=== PATIENT | female | born 1945 | race Caucasian/White ===

== ENCOUNTER 2020-08-31 15:00 | IRF | payer MEDICARE, MEDICAID, SELFPAY ==
--- NOTE | ~2020-08-31 | US_ITS ---
EXAMINATION: US venous doppler LE EXAM DATE: 09/07/2020 13:23 INDICATION: Bilateral leg swelling more on the left than on the right. TECHNIQUE: Multiple grayscale, color flow and Doppler images of the lower extremity deep venous syste ms bilaterally were obtained and reviewed. There is no prior study for comparison. FINDINGS: Right side: The right common femoral, femoral and profunda veins demonstrate normal color flow, respi ratory variation, augmentation and compressibility. Compressibility, color flow confirmed within the right popliteal, posterior tibial, peroneal, and greater saphenous veins. Left side: The left common femoral, femoral and profunda veins demonstrate normal color flow, respira tory variation, augmentation and compressibility. Compressibility, color flow confirmed within the l eft popliteal, posterior tibial, peroneal, and greater saphenous veins. IMPRESSION: 1. No lower extremity deep venous thrombosis bilaterally. Reviewed, dictated and finalized at location A.
[2020-08-31 15:00] VITALS: BMI 33.6
--- NOTE | 2020-08-31 15:34 | ADMGEN ---
This patient, Geni Ferreira, was admitted to [facility] Room 223-02. Patient/family oriented to hospital policies and general routines including ID bracelet, bed and alarms, visiting hours, pain management, procedures, bathroom and other care routines, personal items, smoking policy, room service/diet, and visiting hours. Information on how to activate the Rapid Response Team has been discussed. Patient/Family are encouraged to report perceived risks to care and to ask questions if they do not understand what they are told or what they should do.
[2020-08-31 15:37] VITALS: BP 112/52; PULSE 58; RESP 18; TEMP 36.2; O2SAT 100
--- NOTE | 2020-08-31 16:42 | ADMGEN ---
This patient, Geni Ferreira, was admitted to [facility] Room 223-02. Patient/family oriented to hospital policies and general routines including ID bracelet, bed and alarms, visiting hours, pain management, procedures, bathroom and other care routines, personal items, smoking policy, room service/diet, and visiting hours. Information on how to activate the Rapid Response Team has been discussed. Patient/Family are encouraged to report perceived risks to care and to ask questions if they do not understand what they are told or what they should do. Patient arrived to unit at 1500, was transported via w/c Front Desk HQ, pleasant and cooperative
[2020-08-31 17:13] LABS: Glucose Point of Care 172 (65-105)
[2020-08-31] MEDS: SEVELAMER CARBONATE 800 MG TABLET PO (18:09)
[2020-08-31] MEDS: rOPINIRole HCL 0.25 MG TABLET PO (18:10)
[2020-08-31] MEDS: HYDROcodone/acetaminophen (*CRX) 10-325 MG TABLET 1 TAB PO ×2 (18:11→22:57)
--- NOTE | 2020-08-31 18:24 | WPDREHABHP ---
H&P: HPI History of Present Illness Date/Time: 08/31/20 18:24 Chief Complaint: left inferior pubic rami fracture Narrative: HISTORY OF PRESENT ILLNESS: The patient's primary rehab impairment category is orthopedic lower extremity fracture The etiologic diagnosis is nondisplaced left inferior pubic ramus fracture I saw this patient [id number] on 08/31/2020 The patient is a 74-year-old obese female with past medical history of type 2 diabetes, hypertension, atrial fib on aspirin, and end-stage renal disease with hemodialysis Sunday presented to [facility] on 08/28/2020 for evaluation of left hip and pelvic pain after experiencing a fall 2 days prior. Patient was initially seen on 08/26/2020 at [place] emergency department and found to have a pelvic fracture. The patient deferred admittance and was discharged home. She continued to have pain and was re-evaluated at [facility] on 08/29/2019. Imaging showed healing complete nondisplaced fracture through the midportion left inferior pubic rami. Orthopedic consult was requested and recommended nonsurgical intervention. The patient is weight-bearing as tolerated through the left lower extremity. The injury is stable and physician recommends air you for continued functional progress. No further follow-up for repeat radiographs are indicated for this type of fracture. The patient experienced medical complications of hypertension, hypo in a tree me a, hyperglycemia, hypercalcemia, anemia, and acute persistent pain. The patient will not discharge to [place] acute rehab on DVT prophylaxis. The patient is responding well to p.o. narcotics for pain control Therapy was initiated at the acute care facility and the patient transferred to us from [facility] on 08/31/2020 FALLS OR SURGERIES: The patient has had no major surgeries in the 100 days prior to admission. They has had falls in the past year. They has had a ] falls with injury in the past year. nondisplaced left inferior pubic rami fracture PRIOR LEVEL OF FUNCTION: Eating was [INDEPENDENT] Oral Care was [INDEPENDENT] Toileting Hygiene was [INDEPENDENT] Shower/Bathing was [INDEPENDENT] Upper Body Dressing was [INDEPENDENT] Lower Body Dressing was [INDEPENDENT] Donning/[place] Footwear was [INDEPENDENT] Rolling Left and Right was [INDEPENDENT] Sit to Lying was [INDEPENDENT] Lying to Sitting was [INDEPENDENT] Sit to Stand was [INDEPENDENT] Bed to Chair Transfers was [INDEPENDENT] Toilet Transfers was [INDEPENDENT] Walking was [INDEPENDENT] [>500 feet] with [NO DEVICE] Wheelchair Mobility was [NOT APPLICABLE PRIOR TO ADMISSION] Stairs were 6 steps requiring supervision or touching assistance CURRENT LEVEL OF FUNCTION: Eating was independent Oral Care was setup are clean up assistance Toileting Hygiene was partial to moderate assistance Shower/Bathing was partial to moderate assistance Upper Body Dressing was partial to moderate assistance Lower Body Dressing was partial to moderate assistance Donning/[place] Footwear was partial to moderate assistance Rolling Left and Right was partial to moderate assistance Sit to Lying was partial to moderate assistance Lying to Sitting was partial to moderate assistance Sit to Stand was partial to moderate assist Bed to Chair Transfers were partial to moderate assistance Toilet Transfers were partial to moderate assistance Walking was 40 ft with a roller walker and partial to moderate assistance Wheelchair Mobility was [] not tested Stairs were [] not tested GOALS: Our therapists will evaluate the patient and establish the goals. However, upon pre-admission screening, the expected goals were to be [INDEPENDENT] with self-care, [INDEPENDENT] with transfers, and [INDEPENDENT] with functional mobility so that the patient can return home. ESTIMATED LENGTH OF STAY: 7-10 days POTENTIAL BARRIERS TO DISCHAR
[2020-08-31 20:25] VITALS: BP 129/50; PULSE 59; RESP 20; TEMP 36.5; O2SAT 100
[2020-08-31 20:40] LABS: Glucose Point of Care 191 (65-105)
[2020-08-31 20:43] VITALS: PULSE 62
[2020-08-31] MEDS: AMITRIPTYLINE HCL 25 MG TABLET 50 MG PO (20:43)
[2020-08-31] MEDS: ASPIRIN 81 MG ENTERIC TABLET PO (20:43)
[2020-08-31] MEDS: busPIRone HCL 10 MG TABLET PO (20:43)
[2020-08-31] MEDS: carvediloL 25 MG TABLET PO (20:43)
[2020-08-31] MEDS: PRAVASTATIN SODIUM 20 MG TABLET PO (20:44)
[2020-08-31] MEDS: MIRTAZAPINE 15 MG TABLET PO (20:45)
[2020-08-31 22:00] VITALS: BP 129/50; PULSE 59; RESP 20; TEMP 36.5; O2SAT 100
[2020-09-01] VITALS (18 sets, daily range): BP systolic 110–150; BP diastolic 53–73; PULSE 57–80; RESP 16–22; TEMP 36–37; O2SAT 97–98; BMI 33.6
[2020-09-01 06:14] LABS: Glucose Point of Care 131 (65-105)
[2020-09-01] MEDS: HYDROcodone/acetaminophen (*CRX) 10-325 MG TABLET 1 TAB PO ×4 (06:15→20:23)
[2020-09-01] MEDS: INSULIN GLARGINE (*BKC) 100 UNITS/ML 10 UNITS SUB-Q (06:15)
[2020-09-01] MEDS: LEVOTHYROXINE SODIUM 50 MCG TABLET PO (06:17)
[2020-09-01 07:35] LABS: Alanine Aminotransferase 26 U/L (4-35); Albumin Level 3.6 g/dL (3.5-5.1); Alkaline Phosphatase 169 U/L (38-126); Anion Gap 11 mmol/L (8-16); Aspartate Amino Transferase 38 U/L (14-36); Bilirubin,Total 0.3 mg/dL (0.2-1.3); Blood Urea Nitrogen 66 mg/dL (7-17); Calcium 8.2 mg/dL (8.4-10.2); Carbon Dioxide 27 mmol/L (22-30); Chloride 89 mmol/L (98-107); Estimated CRCL calculation 7 ml/min; Estimated Glomerular Filt Rate 6; Glucose 145 mg/dL (65-105); Phosphorus 7.3 mg/dL (2.5-4.5); Potassium 5.4 mmol/L (3.4-5.0); Sodium 127 mmol/L (137-145)
[2020-09-01 07:46] LABS: Parathyroid Intact 734.1 pg/mL (7.5-53.5)
[2020-09-01 07:50] LABS: Basophils Percent Auto 0.6 % (0.2-1.2); Eosinophils Absolute Auto 0.2 K/mm3 (0-0.3); Eosinophils Percent Auto 3.9 % (0-4.4); Hematocrit 29.7 % (37.0-47.0); Hemoglobin 10.1 g/dL (12.0-15.0); Immature Granulocyte Absolute 0.03 K/mm3 (0.00-0.031); Immature Granulocyte Percent A 0.6 % (0-0.5); Immature Platelet Fraction Pct 13.2 % (0.9-11.2); Lymphocytes Absolute Auto 1.42 K/mm3 (0.9-3.2); Lymphocytes Percent Auto 26.4 % (18.3-44.2); Mean Corpuscular Hemoglobin 32.4 pg (26-34); Mean Corpuscular Volume 95.2 fl (80-100); Mean Platelet Volume 12.6 fl (7.4-10.4); Monocytes Absolute Auto 0.7 K/mm3 (0.1-0.6); Monocytes Percent Auto 13.4 % (2.6-8.5); Neutrophils Percent Auto 55.1 % (45.5-73.1); Platelet Count Result 121 k/mm3 (150-375); Red Blood Count 3.12 M/mm3 (4.2-5.4); Red Cell Distribution Width 13.2 % (11.5-14.5); White Blood Count 5.4 K/mm3 (4.5-10.0)
[2020-09-01 07:51] LABS: Iron 60 ug/dL (37-170)
[2020-09-01 08:00] LABS: Percent Iron Saturation 31 % (20-50)
[2020-09-01 08:09] LABS: Vitamin D 25 Hydroxy 29.6 ng/mL
[2020-09-01 08:24] LABS: Hepatitis B Surface Antigen Negative (Negative)
[2020-09-01 08:30] LABS: HAV RESULT Negative (Negative); Hepatitis B Core IgM Result Negative (Negative)
[2020-09-01] MEDS: VITAMIN B CMPLX/VIT C/FOLIC AC 1 CAPSULE 1 CAP PO (08:37)
[2020-09-01] MEDS: FLUTICASONE PROPIONATE 0.05% NA SPR 16 GM BTL (*BKC) 2 SPRAY NASAL (08:37)
[2020-09-01] MEDS: ISOSORBIDE MONONITRATE 30 MG TAB.ER.24H PO (08:37)
[2020-09-01] MEDS: SEVELAMER CARBONATE 800 MG TABLET PO ×3 (08:37→16:48)
[2020-09-01] MEDS: CITALOPRAM HYDROBROMIDE 10 MG TABLET 40 MG PO (08:37)
[2020-09-01] MEDS: amLODIPine BESYLATE 5 MG TABLET 10 MG PO (08:37)
[2020-09-01] MEDS: LORATADINE 10 MG TABLET PO (08:38)
[2020-09-01] MEDS: busPIRone HCL 10 MG TABLET PO ×2 (08:38→20:25)
[2020-09-01] MEDS: MONTELUKAST SODIUM 10 MG TABLET PO (08:38)
[2020-09-01] MEDS: AMIODARONE HCL 200 MG TABLET PO (08:38)
[2020-09-01] MEDS: lisinopriL 20 MG TABLET PO (08:38)
[2020-09-01] MEDS: PANTOPRAZOLE 40 MG TABLET PO (08:38)
[2020-09-01] MEDS: DONEPEZIL HCL 10 MG TABLET PO (08:38)
[2020-09-01] MEDS: carvediloL 25 MG TABLET PO ×2 (08:38→20:27)
[2020-09-01 08:42] LABS: Hepatitis B Surface Anti Res Negative; Hepatitis C Virus Antibody Negative (Negative)
[2020-09-01 11:30] LABS: Glucose Point of Care 214 (65-105)
[2020-09-01] MEDS: INSULIN ASPART (*BKC) 100 UNITS/ML SUB-Q (12:04)
--- NOTE | 2020-09-01 13:32 | PCNSR ---
On 09/01/20, the student, Juanita Voss, provided care and completed [employer] documentation on this patient. I have reviewed the student's documentation and agree with the findings. In addition, recommend adding diabetic, carbohydrate diet for optimal glucose control.
--- NOTE | 2020-09-01 14:16 | WPDNEURORHBP ---
Subjective Date/time seen: 09/01/20 14:16 Interval history: Rehab diagnosis: non displaced left inferior pubic rami fracture 74-year-old female with past medical history of diabetes type 2 mellitus. Hypertension. Atrial fib on aspirin, and end-stage renal disease with hemodialysis Sunday who presented to [facility] on 08/28 for evaluation of left hip and pelvic pain after experience a fall 2 days prior. Imaging showed healing complete nondisplaced fracture through the midportion left inferior pubic rami. Patient is weight-bearing as tolerated left lower extremity and patient is now being transferred to acute rehab. Review of Systems Review of Systems: All systems reviewed & are unremarkable except as noted in HPI and below Exam Narrative: Exam Narrative: Patient is alert and oriented x3 pleasant. Head is normocephalic. Extraocular muscles are intact. Speech is fluent dentition is poor. Heart rate and rhythm is regular. Lungs are clear. Abdomen is obese soft nontender upper extremity strength are 4/5 right lower extremity strength is 4-5 left is painful with proximal strength being 2 to 3/5 and distal strength 3- to 4+ Objective Data Vital Signs Vital Signs: Vital Signs - 24 hr 08/31/20 15:37 08/31/20 20:25 08/31/20 20:43 Temperature 36.2 C L 36.5 C Pulse Rate 58 L 59 L 62 Respiratory Rate 18 20 Blood Pressure 112/52 L 129/50 L Pulse Oximetry 100 100 08/31/20 22:00 09/01/20 06:00 09/01/20 08:38 Temperature 36.5 C 36.1 C L Pulse Rate 59 L 61 66 Respiratory Rate 20 16 Blood Pressure 129/50 L 122/70 Pulse Oximetry 100 98 Intake/Output Intake/Output: Intake & Output 08/29/20 08/30/20 08/31/20 09/01/20 23:59 23:59 23:59 23:59 Intake Total 480 Balance 480 Meds/Results Medications: Active Medications Generic Name Dose Route Start Last Admin Trade Name Freq PRN Reason Stop Dose Admin Acetaminophen 1,000 mg 09/02/20 08:00 Acetaminophen 500 Mg Tablet PO 0800,1200 DERRICK Acetaminophen 650 mg 09/01/20 13:46 Acetaminophen 325 Mg Tablet PO Q6H PRN Mild Pain (1-3) or Fever Hydrocodone Bitart/Acetaminophen 1 tab 08/31/20 17:08 09/01/20 10:17 Hydrocodone/Acetaminophen (*Crx) 10-325 Mg Tablet PO 1 tab Q4H PRN Administration Pain Amiodarone HCl 200 mg 09/01/20 09:00 09/01/20 08:38 Amiodarone Hcl 200 Mg Tablet PO 200 mg DAILY DERRICK Administration Amitriptyline HCl 50 mg 08/31/20 21:00 08/31/20 20:43 Amitriptyline Hcl 25 Mg Tablet PO 50 mg HS DERRICK Administration Amlodipine Besylate 10 mg 09/01/20 09:00 09/01/20 08:37 Amlodipine Besylate 5 Mg Tablet PO 10 mg DAILY DERRICK Administration Aspirin 81 mg 08/31/20 21:00 08/31/20 20:43 Aspirin 81 Mg Enteric Tablet PO 81 mg HS DERRICK Administration Buspirone HCl 10 mg 08/31/20 21:00 09/01/20 08:38 Buspirone Hcl 10 Mg Tablet PO 10 mg Q12HR DERRICK Administration Carisoprodol 350 mg 08/31/20 17:16 Carisoprodol (*Crx) 350 Mg Tablet PO TID PRN Muscle Spasm Carvedilol 25 mg 08/31/20 21:00 09/01/20 08:38 Carvedilol 25 Mg Tablet PO 25 mg Q12HR DERRICK Administration Citalopram Hydrobromide 40 mg 09/01/20 09:00 09/01/20 08:37 Citalopram Hydrobromide 10 Mg Tablet PO 40 mg DAILY DERRICK Administration Dextrose 12.5 gm 08/31/20 16:31 Dextrose 50% 25 Gm/50 Ml Syringe IV PUSH PRN PRN Hypoglycemia Protocol Donepezil HCl 10 mg 09/01/20 09:00 09/01/20 08:38 Donepezil Hcl 10 Mg Tablet PO 10 mg DAILY DERRICK Administration Epoetin Conor-epbx 10,000 units 09/01/20 23:09 Epoetin Conor-Epbx 10,000 Units/Ml Vial IV PUSH 09/01/20 23:10 ONCE ONE Ergocalciferol 50,000 unit 09/02/20 09:00 Ergocalciferol 50,000 Unit Capsule PO [facility]LY [facility] Fluticasone Propionate 2 spray 09/01/20 09:00 09/01/20 08:37 Fluticasone Propionate 0.05% Na Spr 16 Gm Btl (*Bkc) NASAL 2 sp
--- NOTE | 2020-09-01 14:18 | PM.CNNEP ---
Assessment and Plan Assessment and plan (1) End stage renal disease: Code(s): N18.6 - End stage renal disease Status: Chronic Assessment and Plan: HD today and continue M/W/F dialysis schedule follow electrolytes, volume status, and clearance (2) Fracture of left pelvis: Code(s): S32.9XXA - Fracture of unspecified parts of lumbosacral spine and pelvis, initial encounter for closed fracture Status: Acute Assessment and Plan: non-operative management pain control PT/OT as tolerated (3) Hypertension: Code(s): I10 - Essential (primary) hypertension Status: Chronic Assessment and Plan: reasonable control at this time follow trend of hemodynamics (4) Anemia: Code(s): D64.9 - Anemia, unspecified Status: Chronic Assessment and Plan: in range/at goal for ESRD adequate iron stores by anemia studies Epogen with HD follow trend of H/H (5) Renal osteodystrophy: Code(s): N25.0 - Renal osteodystrophy Status: Chronic Assessment and Plan: calcium okay but phosphorus elevated PTH mildly elevated as well will increase/titrate binders as needed will likely need hectoral with HD as well (6) Debility: Code(s): R53.81 - Other malaise Status: Acute Assessment and Plan: PT/OT/rehab as tolerated Will continue to follow. History of Present Illness Reason for Consult Consult date: 09/01/20 Reason for consult: end stage renal disease Chief Complaint Chief complaint: Lt. inferior pubic ramus History of Present Illness Narrative: The patient is a 74-year-old female with an extensive past medical history as outlined below who was transferred to [facility] for further therapy regarding her recent left inferior pubic ramus fracture. The patient initially presented to [facility] after a fall 48 hr prior to admission. She apparently was seen in a local emergency room where she was diagnosed with the aforementioned left left pelvic fracture. She was offered admission at that time which he rather go when go home and so she did but when doing so she did not realize this severity of the pain that she was in as well as the fact that she was in able to do her simple activities of daily living. For this reason she returned back to the ER and was subsequently in the hospital for pain control and orthopedic evaluation. It was felt that her left pelvic fracture was not in need of surgery and hence pain control and conservative medical management was recommended. As she was otherwise medically stable, the patient was subsequent transferred to [facility] for ongoing physical and occupational therapy. Renal consultation was requested due to her end-stage renal disease. The patient normally dialyzes on a Sunday schedule at [facility] under the care Dr. Jones. During her recent hospitalization, she was maintain her Sunday schedule with relative stability in her electrolytes, volume status, and clearance. The patient has been on dialysis for about three years now and has been doing reasonably well. She does not recall ever being told that she gains excessive amount of fluid and her monthly labs are under decent control per her recollection. She is due for dialysis today. Currently, the time my visit, she appears to be in no acute distress. Review of Systems Review of Systems: Narrative: As per HPI. [facility] Past Medical History Medical History (Updated 09/01/20 @ 18:21 by Denise Coffey MD) Arthritis Asthma Atrial fibrillation Back pain CHF (congestive heart failure) Chronic kidney disease GERD (gastroesophageal reflux disease) Hemodialysis patient History of nephrolithotomy with removal of calculi Hyperlipidemia Hypertension Inflammatory liver disease Injury of gallbladder during surgery Type 2 diabetes faye
[2020-09-01 16:47] LABS: Glucose Point of Care 103 (65-105)
[2020-09-01] MEDS: rOPINIRole HCL 0.25 MG TABLET PO (17:54)
[2020-09-01 20:07] LABS: Glucose Point of Care 161 (65-105)
[2020-09-01] MEDS: PRAVASTATIN SODIUM 20 MG TABLET PO (20:25)
[2020-09-01] MEDS: AMITRIPTYLINE HCL 25 MG TABLET 50 MG PO (20:26)
[2020-09-01] MEDS: ASPIRIN 81 MG ENTERIC TABLET PO (20:26)
[2020-09-01] MEDS: MIRTAZAPINE 15 MG TABLET PO (20:27)
[2020-09-01] MEDS: MECLIZINE HCL 25 MG TABLET PO (20:27)
[2020-09-01] MEDS: EPOETIN ALFA-EPBX 10,000 UNITS/ML VIAL 10000 UNITS IV PUSH (22:39)
[2020-09-02] VITALS (10 sets, daily range): BP systolic 104–137; BP diastolic 47–63; PULSE 56–65; RESP 16–20; TEMP 36.2–37; O2SAT 97–98
[2020-09-02] MEDS: HYDROcodone/acetaminophen (*CRX) 10-325 MG TABLET 1 TAB PO ×2 (01:18→22:58)
[2020-09-02 06:24] LABS: Glucose Point of Care 123 (65-105)
[2020-09-02] MEDS: INSULIN GLARGINE (*BKC) 100 UNITS/ML 10 UNITS SUB-Q (06:31)
[2020-09-02] MEDS: LEVOTHYROXINE SODIUM 50 MCG TABLET PO (06:35)
[2020-09-02] MEDS: SEVELAMER CARBONATE 800 MG TABLET PO ×3 (07:54→17:24)
[2020-09-02] MEDS: FLUTICASONE PROPIONATE 0.05% NA SPR 16 GM BTL (*BKC) 2 SPRAY NASAL (07:54)
[2020-09-02] MEDS: amLODIPine BESYLATE 5 MG TABLET 10 MG PO (07:55)
[2020-09-02] MEDS: busPIRone HCL 10 MG TABLET PO ×2 (07:55→20:37)
[2020-09-02] MEDS: MONTELUKAST SODIUM 10 MG TABLET PO (07:55)
[2020-09-02] MEDS: lisinopriL 20 MG TABLET PO (07:55)
[2020-09-02] MEDS: PANTOPRAZOLE 40 MG TABLET PO (07:55)
[2020-09-02] MEDS: ERGOCALCIFEROL 50,000 UNIT CAPSULE 50000 UNITS PO (07:55)
[2020-09-02] MEDS: LORATADINE 10 MG TABLET PO (07:55)
[2020-09-02] MEDS: VITAMIN B CMPLX/VIT C/FOLIC AC 1 CAPSULE 1 CAP PO (07:55)
[2020-09-02] MEDS: ACETAMINOPHEN 500 MG TABLET 1000 MG PO ×2 (07:55→12:01)
[2020-09-02] MEDS: DONEPEZIL HCL 10 MG TABLET PO (07:56)
[2020-09-02] MEDS: carvediloL 25 MG TABLET PO ×2 (07:56→20:36)
[2020-09-02] MEDS: ISOSORBIDE MONONITRATE 30 MG TAB.ER.24H PO (07:56)
[2020-09-02] MEDS: CITALOPRAM HYDROBROMIDE 10 MG TABLET 40 MG PO (07:56)
[2020-09-02] MEDS: AMIODARONE HCL 200 MG TABLET PO (07:56)
[2020-09-02] MEDS: LIDOCAINE 5% PATCH 2 PATCH TRANSDERM (11:28)
[2020-09-02 11:56] LABS: Glucose Point of Care 164 (65-105)
--- NOTE | 2020-09-02 13:25 | RPD ---
INDIVIDUALIZED PLAN OF CARE FOR Geni Ferreira Brief Synthesis of Pre-Admission Screen, Post-Admission Evaluation and Therapy Evaluations: The patient presents to rehab with a nondisplaced left inferior pubic ramus fracture. Comorbidities include chronic kidney disease, end stage renal disease on hemodialysis, CHF, chronic renal insufficiency, GERD, hypertension, inflammatory liver disease, hyperlipidemia, paroxysmal atrial fibrillation, type 2 diabetes mellitus, arthritis, and asthma. The complexity of the patient's medical management, nursing, and therapy needs require an inpatient rehab hospital stay with a physician-led interdisciplinary team approach. The patient?s needs will be best met in an intensive program vs. at a lower level of care. The patient requires physician services for medical oversight, management of medical complications in setting of present comorbidities, and pain management. She will be followed at least three times a week by the rehabilitation physician. The patient requires nursing services for DVT prophylactics, infection protection, medication management and education, and pressure relief. Deficits include:ADLs, Balance, Endurance, Family Training/Education, Mobility, Pain Management, ROM, Safety, Strength, and Transfers. Automobile Relocation Engineer/Case Management for: Discharge Planning and Patient/Family Counseling Physical Therapy: 5 days per week for 90 minutes. Treatments may include: Therapeutic Exercise, Gait Training, Neuromuscular Re-education, Transfer Training, Community Reintegration, Bed Mobility, Patient/Family Education, Wheelchair Mobility Group Therapy/Concurrent Therapy Rationales: -Improve attention span during functional activities in a distracted environment. -Enhance problem solving and/or adequate judgment skills during functional activities in a distracted environment. -Promote increased safety awareness in a distracted environment to reduce fall risk with functional tasks, transfers, and ambulation to allow a more safe, self-sufficient return to the home environment. -Improve dynamic balance skills to promote safety and independence with functional activities in a distracted environment for maximum gain. Occupational Therapy: 5 days per week for 90 minutes. Treatments may include: Therapeutic Exercise, Therapeutic Activity, Cognitive Training, Self-Care Transfer Training, Community Reintegration, Home Management, Patient/Family Education, Wheelchair Mobility Training, Energy Conservation Training Group Therapy/Concurrent Therapy Rationales: -Allow therapist to observe and teach generalization and carry-over of skills learned in individual therapy. -Enhance problem solving and sequencing skills during therapeutic activities in a distracted environment. -Promote increased safety awareness in a realistic setting to reduce fall risk with functional tasks due to visual and verbal distractions. -Increase functional level with ADLs, ADL transfers and use of adaptive equipment through therapeutic activities with others while promoting safety to allow a more safe, self-sufficient return home. Medical Prognosis: Good Anticipated Length of Stay: 10 days Rehab Goals: Eating Goal: 06-Independent Oral Hygiene Goal: 06-Independent Toileting Hygiene Goal: 06-Independent Shower/Bathe Self Goal: 04-Supervision or Touching Assistance Upper Body Dressing Goal: 06-Independent Lower Body Dressing Goal: 04-Supervision or Touching Assistance Putting On/Taking Off Footwear Goal: 04-Supervision or Touching Assistance Rolling Left and Right Goal: 06-Independent Sit to Lying Goal: 06-Independent Lying to Sitting on Side of Bed Goal: 06-Independent Sit to Stand Goal: 06-Independent Chair/[id number]-[id number] Transfer Goal: 06-Independent Toilet Transfer Goal: 06-Independent Car Transfer Goal: 06-Independent Walk 10' Goal: 06-Independent Walk 50' with Two Turns Goal: 06-Independent Walk 150' Goal: 09-Not Applicable Walk 10' on Uneven Surface Go
--- NOTE | 2020-09-02 15:53 | WPDNEURORHBP ---
Subjective Date/time seen: 09/02/20 15:53 Interval history: Rehab diagnosis: non displaced left inferior pubic rami fracture 74-year-old female with past medical history of diabetes type 2 mellitus. Hypertension. Atrial fib on aspirin, and end-stage renal disease with hemodialysis Sunday who presented to [facility] on 08/28 for evaluation of left hip and pelvic pain after experience a fall 2 days prior. Imaging showed healing complete nondisplaced fracture through the midportion left inferior pubic rami. Patient is weight-bearing as tolerated left lower extremity and patient is now being transferred to acute rehab. Patient complaining of 10/10 pain but freely moves legs without hesitation.Patient requested pain pill last night but when RN arrived, patient was sleeping. Patient was taking [place] for back pain from Ortho. Patient states that she was taking 5 pills/day. Review of Systems Review of Systems: All systems reviewed & are unremarkable except as noted in HPI and below Functional Status Ambulation Ability Ability to Ambulate 10 Feet: Contact Guard Ambulation Assistive Devices: Walker, Wheeled Exam Narrative: Exam Narrative: Patient in no acute distress. Patient is alert and oriented x3 pleasant. Head is normocephalic. Extraocular muscles are intact. Speech is fluent dentition is poor. Heart rate and rhythm is regular. Lungs are clear. Abdomen is obese soft nontender upper extremity strength are 4/5 right lower extremity strength is 4-5 left is painful with proximal strength being 3-4-/5 and distal strength 3- to 4+ Objective Data Vital Signs Vital Signs: Vital Signs - 24 hr 09/01/20 20:27 09/01/20 20:48 09/01/20 20:59 Temperature 36.1 C L 37.0 C Pulse Rate 80 57 L 60 Respiratory Rate 22 H 20 Blood Pressure 139/55 L 150/68 H Pulse Oximetry 97 09/01/20 21:14 09/01/20 21:30 09/01/20 21:45 Temperature Pulse Rate 59 L 58 L 60 Respiratory Rate Blood Pressure 138/73 132/65 138/65 Pulse Oximetry 09/01/20 22:00 09/01/20 22:15 09/01/20 22:30 Temperature Pulse Rate 59 L 60 60 Respiratory Rate Blood Pressure 129/65 125/64 130/60 Pulse Oximetry 09/01/20 22:45 09/01/20 23:00 09/01/20 23:15 Temperature Pulse Rate 60 61 62 Respiratory Rate Blood Pressure 119/57 L 115/60 112/53 L Pulse Oximetry 09/01/20 23:30 09/01/20 23:45 09/02/20 00:00 Temperature Pulse Rate 61 60 61 Respiratory Rate Blood Pressure 119/61 110/53 L 104/58 L Pulse Oximetry 09/02/20 00:15 09/02/20 00:30 09/02/20 00:45 Temperature Pulse Rate 60 59 L 61 Respiratory Rate Blood Pressure 116/59 L 110/57 L 117/62 Pulse Oximetry 09/02/20 00:53 09/02/20 05:33 09/02/20 07:56 Temperature 37.0 C 36.2 C L Pulse Rate 62 59 L 62 Respiratory Rate 20 20 Blood Pressure 115/63 106/49 L Pulse Oximetry 97 09/02/20 14:00 Temperature 36.3 C L Pulse Rate 56 L Respiratory Rate 16 Blood Pressure 108/47 L Pulse Oximetry 98 Intake/Output Intake/Output: Intake & Output 08/30/20 08/31/20 09/01/20 09/02/20 23:59 23:59 23:59 23:59 Intake Total 720 240 Output Total 2400 Balance 720 -2160 Meds/Results Medications: Active Medications Generic Name Dose Route Start Last Admin Trade Name Freq PRN Reason Stop Dose Admin Acetaminophen 1,000 mg 09/02/20 08:00 09/02/20 12:01 Acetaminophen 500 Mg Tablet PO 1,000 mg 0800,1200 DERRICK Administration Acetaminophen 650 mg 09/01/20 13:46 Acetaminophen 325 Mg Tablet PO Q6H PRN Mild Pain (1-3) or Fever Hydrocodone Bitart/Acetaminophen 1 tab 08/31/20 17:08 09/02/20 01:18 Hydrocodone/Acetaminophen (*Crx) 10-325 Mg Tablet PO 1 tab Q4H PRN Administration Pain Amiodarone HCl 200 mg 09/01/20 09:00 09/02/20 07:56 Amiodarone Hcl 200 Mg Tablet PO 200 mg DAILY DERRICK Administration Amitriptyline HCl 50 mg 08/31/20 21:00 09/01/20 20:26 Am
[2020-09-02 16:44] LABS: Glucose Point of Care 159 (65-105)
[2020-09-02] MEDS: rOPINIRole HCL 0.25 MG TABLET PO (17:24)
[2020-09-02] MEDS: ACETAMINOPHEN 325 MG TABLET 650 MG PO (17:25)
[2020-09-02] MEDS: AMITRIPTYLINE HCL 25 MG TABLET 50 MG PO (20:36)
[2020-09-02] MEDS: MIRTAZAPINE 15 MG TABLET PO (20:37)
[2020-09-02] MEDS: ASPIRIN 81 MG ENTERIC TABLET PO (20:37)
[2020-09-02] MEDS: PRAVASTATIN SODIUM 20 MG TABLET PO (20:37)
[2020-09-02 22:16] LABS: Glucose Point of Care 219 (65-105)
[2020-09-03 05:20] VITALS: BP 145/56; PULSE 66; RESP 20; TEMP 36.1; O2SAT 100
[2020-09-03] MEDS: LEVOTHYROXINE SODIUM 50 MCG TABLET PO (06:20)
[2020-09-03 06:39] LABS: Glucose Point of Care 98 (65-105)
[2020-09-03 08:00] VITALS: PULSE 66; RESP 20; O2SAT 100
[2020-09-03] MEDS: CITALOPRAM HYDROBROMIDE 20 MG TABLET 40 MG PO (08:13)
[2020-09-03 08:14] VITALS: PULSE 66
[2020-09-03] MEDS: lisinopriL 20 MG TABLET PO (08:14)
[2020-09-03] MEDS: PANTOPRAZOLE 40 MG TABLET PO (08:14)
[2020-09-03] MEDS: busPIRone HCL 10 MG TABLET PO ×2 (08:14→21:58)
[2020-09-03] MEDS: DONEPEZIL HCL 10 MG TABLET PO (08:14)
[2020-09-03] MEDS: carvediloL 25 MG TABLET PO ×2 (08:14→21:58)
[2020-09-03] MEDS: amLODIPine BESYLATE 5 MG TABLET 10 MG PO (08:14)
[2020-09-03] MEDS: AMIODARONE HCL 200 MG TABLET PO (08:14)
[2020-09-03] MEDS: ISOSORBIDE MONONITRATE 30 MG TAB.ER.24H PO (08:14)
[2020-09-03] MEDS: MONTELUKAST SODIUM 10 MG TABLET PO (08:14)
[2020-09-03] MEDS: SEVELAMER CARBONATE 800 MG TABLET PO ×3 (08:15→17:22)
[2020-09-03] MEDS: ACETAMINOPHEN 500 MG TABLET 1000 MG PO ×2 (08:15→12:22)
[2020-09-03] MEDS: VITAMIN B CMPLX/VIT C/FOLIC AC 1 CAPSULE 1 CAP PO (08:16)
[2020-09-03] MEDS: FLUTICASONE PROPIONATE 0.05% NA SPR 16 GM BTL (*BKC) 2 SPRAY NASAL (08:16)
[2020-09-03] MEDS: LORATADINE 10 MG TABLET PO (08:16)
[2020-09-03] MEDS: LIDOCAINE 5% PATCH 2 PATCH TRANSDERM (08:16)
[2020-09-03] MEDS: HYDROcodone/acetaminophen (*CRX) 10-325 MG TABLET 1 TAB PO ×2 (10:25→15:07)
[2020-09-03 12:08] LABS: Glucose Point of Care 187 (65-105)
[2020-09-03 14:00] VITALS: BP 117/41; PULSE 55; RESP 18; TEMP 36.6; O2SAT 100
--- NOTE | 2020-09-03 14:01 | PM.PNNEP ---
Progress Note: A&P Assessment and Plan (1) End stage renal disease: Code(s): N18.6 - End stage renal disease Status: Chronic Assessment and Plan: HD tomorrow (due to HD nurse staffing issues, she wound not get a treatment today until around midnight) will eventually transition back to M/W/F dialysis schedule follow electrolytes, volume status, and clearance (2) Fracture of left pelvis: Code(s): S32.9XXA - Fracture of unspecified parts of lumbosacral spine and pelvis, initial encounter for closed fracture Status: Acute Assessment and Plan: non-operative management pain control PT/OT as tolerated (3) Hypertension: Code(s): I10 - Essential (primary) hypertension Status: Chronic Assessment and Plan: reasonable control at this time follow trend of hemodynamics (4) Anemia: Code(s): D64.9 - Anemia, unspecified Status: Chronic Assessment and Plan: in range/at goal for ESRD adequate iron stores by anemia studies Epogen with HD follow trend of H/H (5) Renal osteodystrophy: Code(s): N25.0 - Renal osteodystrophy Status: Chronic Assessment and Plan: calcium okay but phosphorus elevated PTH mildly elevated as well increase/titrate binders as needed follow paramenters (6) Debility: Code(s): R53.81 - Other malaise Status: Acute Assessment and Plan: PT/OT/rehab as tolerated Will continue to follow. Subjective Date/time seen: 09/03/20 14:01 Appears to be doing reasonably well; no apparent distress voiced at this time; working with PT/Ot as tolerated; tolerated last dialysis treatment without any issues. Exam Narrative: Exam Narrative: General: WD/WN female in NAD Heart: normal S1 and S2; no rub Lungs: clear to auscultation Abdomen: soft, nontender, nondistended, positive bowel sounds Extremities: no cyanosis or clubbing; no edema Skin: warm and dry Objective Data Vital Signs Vital Signs: Vital Signs Temp Pulse Resp BP Pulse Ox 09/03/20 14:00 36.6 C 55 L 18 117/41 L 100 09/03/20 08:14 66 09/03/20 08:00 66 20 100 09/03/20 05:20 36.1 C L 66 20 145/56 H 100 09/02/20 20:58 36.2 C L 64 20 137/55 L 98 09/02/20 20:36 65 Intake/Output Intake/Output: Intake & Output 08/31/20 09/01/20 09/02/20 09/03/20 23:59 23:59 23:59 23:59 Intake Total 720 810 480 Output Total 2400 Balance 720 -1590 480 Meds/Results Medications: Active Medications Generic Name Dose Route Start Last Admin Trade Name Shaq PRN Reason Stop Dose Admin Acetaminophen 1,000 mg 09/02/20 08:00 09/03/20 12:22 Acetaminophen 500 Mg Tablet PO 1,000 mg 0800,1200 DERRICK Administration Acetaminophen 650 mg 09/01/20 13:46 09/02/20 17:25 Acetaminophen 325 Mg Tablet PO 650 mg Q6H PRN Administration Mild Pain (1-3) or Fever Hydrocodone Bitart/Acetaminophen 1 tab 08/31/20 17:08 09/03/20 15:07 Hydrocodone/Acetaminophen (*Crx) 10-325 Mg Tablet PO 1 tab Q4H PRN Administration Pain Amiodarone HCl 200 mg 09/01/20 09:00 09/03/20 08:14 Amiodarone Hcl 200 Mg Tablet PO 200 mg DAILY DERRICK Administration Amitriptyline HCl 50 mg 08/31/20 21:00 09/02/20 20:36 Amitriptyline Hcl 25 Mg Tablet PO 50 mg HS DERRICK Administration Amlodipine Besylate 10 mg 09/01/20 09:00 09/03/20 08:14 Amlodipine Besylate 5 Mg Tablet PO 10 mg DAILY DERRICK Administration Aspirin 81 mg 08/31/20 21:00 09/02/20 20:37 Aspirin 81 Mg Enteric Tablet PO 81 mg HS DERRICK Administration Buspirone HCl 10 mg 08/31/20 21:00 09/03/20 08:14 Buspirone Hcl 10 Mg Tablet PO 10 mg Q12HR DERRICK Administration Carisoprodol 350 mg 08/31/20 17:16 Carisoprodol (*Crx) 350 Mg Tablet PO TID PRN Muscle Spasm Carvedilol 25 mg 08/31/20 21:00 09/03/20 08:14 Carvedilol 25 Mg Tablet PO 25 mg Q12HR DERRICK Administration Citalopra
--- NOTE | 2020-09-03 15:15 | WPDNEURORHBP ---
Subjective Date/time seen: 09/03/20 15:15 Interval history: Rehab diagnosis: non displaced left inferior pubic rami fracture 74-year-old female with past medical history of diabetes type 2 mellitus. Hypertension. Atrial fib on aspirin, and end-stage renal disease with hemodialysis Sunday who presented to [facility] on 08/28 for evaluation of left hip and pelvic pain after experience a fall 2 days prior. Imaging showed healing complete nondisplaced fracture through the midportion left inferior pubic rami. Patient is weight-bearing as tolerated left lower extremity and patient is now being transferred to acute rehab. Patient told staff member that she will call her pain doctor and get [place] if needed. Patient is aware that I will not write prescription Review of Systems Review of Systems: All systems reviewed & are unremarkable except as noted in HPI and below Functional Status Ambulation Ability Ability to Ambulate 10 Feet: Contact Guard Ambulation Assistive Devices: Walker, Wheeled Exam Narrative: Exam Narrative: Patient in no acute distress. Patient is alert and oriented x3 pleasant. Head is normocephalic. Extraocular muscles are intact. Speech is fluent dentition is poor. Heart rate and rhythm is regular. Lungs are clear. Abdomen is obese soft nontender upper extremity strength are 4/5 right lower extremity strength is 4-5 left is painful with proximal strength being 3-4-/5 and distal strength 3- to 4+ Patient is at contact guard with gait for short distances. Objective Data Vital Signs Vital Signs: Vital Signs - 24 hr 09/02/20 20:36 09/02/20 20:58 09/03/20 05:20 Temperature 36.2 C L 36.1 C L Pulse Rate 65 64 66 Respiratory Rate 20 20 Blood Pressure 137/55 L 145/56 H Pulse Oximetry 98 100 09/03/20 08:00 09/03/20 08:14 09/03/20 14:00 Temperature 36.6 C Pulse Rate 66 66 55 L Respiratory Rate 20 18 Blood Pressure 117/41 L Pulse Oximetry 100 100 Intake/Output Intake/Output: Intake & Output 08/31/20 09/01/20 09/02/20 09/03/20 23:59 23:59 23:59 23:59 Intake Total 720 810 480 Output Total 2400 Balance 720 -1590 480 Meds/Results Medications: Active Medications Generic Name Dose Route Start Last Admin Trade Name Shaq PRN Reason Stop Dose Admin Acetaminophen 1,000 mg 09/02/20 08:00 09/03/20 12:22 Acetaminophen 500 Mg Tablet PO 1,000 mg 0800,1200 DERRICK Administration Acetaminophen 650 mg 09/01/20 13:46 09/02/20 17:25 Acetaminophen 325 Mg Tablet PO 650 mg Q6H PRN Administration Mild Pain (1-3) or Fever Hydrocodone Bitart/Acetaminophen 1 tab 08/31/20 17:08 09/03/20 10:25 Hydrocodone/Acetaminophen (*Crx) 10-325 Mg Tablet PO 1 tab Q4H PRN Administration Pain Amiodarone HCl 200 mg 09/01/20 09:00 09/03/20 08:14 Amiodarone Hcl 200 Mg Tablet PO 200 mg DAILY DERRICK Administration Amitriptyline HCl 50 mg 08/31/20 21:00 09/02/20 20:36 Amitriptyline Hcl 25 Mg Tablet PO 50 mg HS DERRICK Administration Amlodipine Besylate 10 mg 09/01/20 09:00 09/03/20 08:14 Amlodipine Besylate 5 Mg Tablet PO 10 mg DAILY DERIRCK Administration Aspirin 81 mg 08/31/20 21:00 09/02/20 20:37 Aspirin 81 Mg Enteric Tablet PO 81 mg HS DERRICK Administration Buspirone HCl 10 mg 08/31/20 21:00 09/03/20 08:14 Buspirone Hcl 10 Mg Tablet PO 10 mg Q12HR DERRICK Administration Carisoprodol 350 mg 08/31/20 17:16 Carisoprodol (*Crx) 350 Mg Tablet PO TID PRN Muscle Spasm Carvedilol 25 mg 08/31/20 21:00 09/03/20 08:14 Carvedilol 25 Mg Tablet PO 25 mg Q12HR DERRICK Administration Citalopram Hydrobromide 40 mg 09/03/20 09:00 09/03/20 08:13 Citalopram Hydrobromide 20 Mg Tablet PO 40 mg DAILY DERRICK Administration Dextrose 12.5 gm 08/31/20 16:31 Dextrose 50% 25 Gm/50 Ml Syringe IV PUSH PRN PRN Hypoglycemia Protocol Donepezil HCl 10 mg 09/01/20 09:00 04
[2020-09-03 17:18] LABS: Glucose Point of Care 207 (65-105)
[2020-09-03] MEDS: INSULIN ASPART (*BKC) 100 UNITS/ML SUB-Q (17:22)
[2020-09-03] MEDS: rOPINIRole HCL 0.25 MG TABLET PO (17:22)
[2020-09-03 20:00] VITALS: PULSE 55; RESP 16; O2SAT 98
[2020-09-03 20:40] LABS: Glucose Point of Care 202 (65-105)
[2020-09-03 21:07] VITALS: BP 119/48; PULSE 55; RESP 16; TEMP 36.4; O2SAT 98
[2020-09-03] MEDS: AMITRIPTYLINE HCL 25 MG TABLET 50 MG PO (21:58)
[2020-09-03] MEDS: PRAVASTATIN SODIUM 20 MG TABLET PO (21:58)
[2020-09-03] MEDS: ASPIRIN 81 MG ENTERIC TABLET PO (21:58)
[2020-09-03] MEDS: MIRTAZAPINE 15 MG TABLET PO (22:19)
[2020-09-04] VITALS (24 sets, daily range): BP systolic 115–149; BP diastolic 51–75; PULSE 61–68; RESP 16–18; TEMP 36.2–37; O2SAT 96–98
[2020-09-04] MEDS: LEVOTHYROXINE SODIUM 50 MCG TABLET PO (05:57)
[2020-09-04] MEDS: INSULIN GLARGINE (*BKC) 100 UNITS/ML 10 UNITS SUB-Q (05:57)
[2020-09-04 06:37] LABS: Glucose Point of Care 165 (65-105)
--- NOTE | 2020-09-04 09:17 | PM.PNNEP ---
Progress Note: A&P Assessment and Plan (1) End stage renal disease: Code(s): N18.6 - End stage renal disease Status: Chronic Assessment and Plan: HD today (due to HD nurse staffing issues, she was unable to receive treatment yesterday) transition back to M/W/F dialysis schedule next week follow electrolytes, volume status, and clearance (2) Fracture of left pelvis: Code(s): S32.9XXA - Fracture of unspecified parts of lumbosacral spine and pelvis, initial encounter for closed fracture Status: Acute Assessment and Plan: non-operative management pain control PT/OT as tolerated (3) Hypertension: Code(s): I10 - Essential (primary) hypertension Status: Chronic Assessment and Plan: reasonable control at this time follow trend of hemodynamics (4) Anemia: Code(s): D64.9 - Anemia, unspecified Status: Chronic Assessment and Plan: in range/at goal for ESRD adequate iron stores by anemia studies Epogen with HD follow trend of H/H (5) Renal osteodystrophy: Code(s): N25.0 - Renal osteodystrophy Status: Chronic Assessment and Plan: calcium okay but phosphorus elevated by last check PTH mildly elevated as well increase/titrate binders as needed follow parameters (6) Debility: Code(s): R53.81 - Other malaise Status: Acute Assessment and Plan: PT/OT/rehab as tolerated Will continue to follow. Subjective Date/time seen: 09/04/20 09:17 Tolerating dialysis at the time of my visit (seen on HD at ~ 9:00AM); sleeping comfortably during treatment; no apparent issues or problems overnight or earlier this AM; no distress noted. Exam Narrative: Exam Narrative: General: WD/WN female in NAD Heart: normal S1 and S2; no rub Lungs: clear to auscultation Abdomen: soft, nontender, nondistended, positive bowel sounds Extremities: no cyanosis or clubbing; trace edema Skin: warm and intact Objective Data Vital Signs Vital Signs: Vital Signs Temp Pulse Resp BP Pulse Ox 09/04/20 09:15 61 124/61 09/04/20 09:00 62 131/60 09/04/20 08:45 62 135/62 09/04/20 08:30 62 133/63 09/04/20 08:15 61 146/75 H 09/04/20 07:55 62 143/75 H 09/04/20 07:45 36.8 C 64 16 144/75 H 09/04/20 05:54 36.2 C L 66 16 149/60 H 96 09/03/20 21:07 36.4 C L 55 L 16 119/48 L 98 09/03/20 20:00 55 L 16 98 09/03/20 14:00 36.6 C 55 L 18 117/41 L 100 Intake/Output Intake/Output: Intake & Output 09/01/20 09/02/20 09/03/20 09/04/20 23:59 23:59 23:59 23:59 Intake Total 720 810 720 Output Total 2400 Balance 720 -1590 720 Meds/Results Medications: Active Medications Generic Name Dose Route Start Last Admin Trade Name Freq PRN Reason Stop Dose Admin Acetaminophen 1,000 mg 09/02/20 08:00 09/03/20 12:22 Acetaminophen 500 Mg Tablet PO 1,000 mg 0800,1200 DERRICK Administration Acetaminophen 650 mg 09/01/20 13:46 09/02/20 17:25 Acetaminophen 325 Mg Tablet PO 650 mg Q6H PRN Administration Mild Pain (1-3) or Fever Hydrocodone Bitart/Acetaminophen 1 tab 08/31/20 17:08 09/03/20 15:07 Hydrocodone/Acetaminophen (*Crx) 10-325 Mg Tablet PO 1 tab Q4H PRN Administration Pain Amiodarone HCl 200 mg 09/01/20 09:00 09/03/20 08:14 Amiodarone Hcl 200 Mg Tablet PO 200 mg DAILY DERRICK Administration Amitriptyline HCl 50 mg 08/31/20 21:00 09/03/20 21:58 Amitriptyline Hcl 25 Mg Tablet PO 50 mg HS DERRICK Administration Amlodipine Besylate 10 mg 09/01/20 09:00 09/03/20 08:14 Amlodipine Besylate 5 Mg Tablet PO 10 mg DAILY DERRICK Administration Aspirin 81 mg 08/31/20 21:00 09/03/20 21:58 Aspirin 81 Mg Enteric Tablet PO 81 mg HS DERRICK Administration Buspirone HCl 10 mg 08/31/20 21:00 09/03/20 21:58 Buspirone Hcl 10 Mg Tablet PO 10 mg Q12HR DERRICK Administration Carvedilol 25 mg 08/31/20 2
--- NOTE | 2020-09-04 09:39 | WPDNEURORHBP ---
Subjective Date/time seen: 09/04/20 09:39 Patient is at dialysis. Functional Status Ambulation Ability Ability to Ambulate 10 Feet: Contact Guard Ambulation Assistive Devices: Walker, Wheeled Objective Data Vital Signs Vital Signs: Vital Signs - 24 hr 09/03/20 14:00 09/03/20 20:00 09/03/20 21:07 Temperature 36.6 C 36.4 C L Pulse Rate 55 L 55 L 55 L Respiratory Rate 18 16 16 Blood Pressure 117/41 L 119/48 L Pulse Oximetry 100 98 98 09/04/20 05:54 09/04/20 07:45 09/04/20 07:55 Temperature 36.2 C L 36.8 C Pulse Rate 66 64 62 Respiratory Rate 16 16 Blood Pressure 149/60 H 144/75 H 143/75 H Pulse Oximetry 96 09/04/20 08:15 09/04/20 08:30 09/04/20 08:45 Temperature Pulse Rate 61 62 62 Respiratory Rate Blood Pressure 146/75 H 133/63 135/62 Pulse Oximetry 09/04/20 09:00 09/04/20 09:15 09/04/20 09:30 Temperature Pulse Rate 62 61 64 Respiratory Rate Blood Pressure 131/60 124/61 142/66 H Pulse Oximetry Intake/Output Intake/Output: Intake & Output 09/01/20 09/02/20 09/03/20 09/04/20 23:59 23:59 23:59 23:59 Intake Total 720 810 720 240 Output Total 2400 Balance 720 -1590 720 240 Meds/Results Medications: Active Medications Generic Name Dose Route Start Last Admin Trade Name Chidiq PRN Reason Stop Dose Admin Acetaminophen 1,000 mg 09/02/20 08:00 09/03/20 12:22 Acetaminophen 500 Mg Tablet PO 1,000 mg 0800,1200 DERRICK Administration Acetaminophen 650 mg 09/01/20 13:46 09/02/20 17:25 Acetaminophen 325 Mg Tablet PO 650 mg Q6H PRN Administration Mild Pain (1-3) or Fever Hydrocodone Bitart/Acetaminophen 1 tab 08/31/20 17:08 09/03/20 15:07 Hydrocodone/Acetaminophen (*Crx) 10-325 Mg Tablet PO 1 tab Q4H PRN Administration Pain Amiodarone HCl 200 mg 09/01/20 09:00 09/03/20 08:14 Amiodarone Hcl 200 Mg Tablet PO 200 mg DAILY DERRICK Administration Amitriptyline HCl 50 mg 08/31/20 21:00 09/03/20 21:58 Amitriptyline Hcl 25 Mg Tablet PO 50 mg HS DERRICK Administration Amlodipine Besylate 10 mg 09/01/20 09:00 09/03/20 08:14 Amlodipine Besylate 5 Mg Tablet PO 10 mg DAILY DERRICK Administration Aspirin 81 mg 08/31/20 21:00 09/03/20 21:58 Aspirin 81 Mg Enteric Tablet PO 81 mg HS DERRICK Administration Buspirone HCl 10 mg 08/31/20 21:00 09/03/20 21:58 Buspirone Hcl 10 Mg Tablet PO 10 mg Q12HR DERRICK Administration Carvedilol 25 mg 08/31/20 21:00 09/03/20 21:58 Carvedilol 25 Mg Tablet PO 25 mg Q12HR DERRICK Administration Citalopram Hydrobromide 40 mg 09/03/20 09:00 09/03/20 08:13 Citalopram Hydrobromide 20 Mg Tablet PO 40 mg DAILY DERRICK Administration Dextrose 12.5 gm 08/31/20 16:31 Dextrose 50% 25 Gm/50 Ml Syringe IV PUSH PRN PRN Hypoglycemia Protocol Donepezil HCl 10 mg 09/01/20 09:00 09/03/20 08:14 Donepezil Hcl 10 Mg Tablet PO 10 mg DAILY DERRICK Administration Ergocalciferol 50,000 unit 09/02/20 09:00 09/02/20 07:55 Ergocalciferol 50,000 Unit Capsule PO 50,000 unit MONTHLY DERRICK Administration Fluticasone Propionate 2 spray 09/01/20 09:00 09/03/20 08:16 Fluticasone Propionate 0.05% Na Spr 16 Gm Btl (*Bkc) NASAL 2 spray DAILY DERRICK Administration Glucagon 1 mg 08/31/20 16:31 Glucagon For Inj 1 Mg Vial IM PRN PRN Hypoglycemia Protocol Glucose 15 gm 08/31/20 16:31 Glucose Oral Gel 15 Gm Of Glucse In 37.5 Gm Tube PO PRN PRN Hypoglycemia Protocol Dextrose 1,000 mls @ 100 mls/hr 08/31/20 16:31 Dextrose 5% 1,000 Ml IVPB PRN PRN Hypoglycemia Protocol Albumin Human 50 mls @ 999 mls/hr 09/01/20 13:09 Albutein IVPB 10/01/20 13:10 Q10M PRN HYPOTENSION Insulin Aspart 4 - 8 units 08/31/20 17:00 09/03/20 17:22 Insulin Aspart (*Bkc) 100 Units/Ml SUB-Q 4 units TIDWM DERRICK Administration Protocol Insulin Glargine 10 units 09/01/20 06:00 09/04/20 05:5
[2020-09-04] MEDS: ACETAMINOPHEN 500 MG TABLET 1000 MG PO (12:04)
[2020-09-04] MEDS: SEVELAMER CARBONATE 800 MG TABLET PO ×2 (12:04→17:06)
[2020-09-04] MEDS: amLODIPine BESYLATE 5 MG TABLET 10 MG PO (12:05)
[2020-09-04] MEDS: CITALOPRAM HYDROBROMIDE 20 MG TABLET 40 MG PO (12:05)
[2020-09-04] MEDS: lisinopriL 20 MG TABLET PO (12:05)
[2020-09-04] MEDS: DONEPEZIL HCL 10 MG TABLET PO (12:06)
[2020-09-04] MEDS: ISOSORBIDE MONONITRATE 30 MG TAB.ER.24H PO (12:06)
[2020-09-04] MEDS: carvediloL 25 MG TABLET PO ×2 (12:06→20:01)
[2020-09-04] MEDS: LORATADINE 10 MG TABLET PO (12:07)
[2020-09-04] MEDS: busPIRone HCL 10 MG TABLET PO ×2 (12:07→20:03)
[2020-09-04] MEDS: MONTELUKAST SODIUM 10 MG TABLET PO (12:07)
[2020-09-04] MEDS: AMIODARONE HCL 200 MG TABLET PO (12:07)
[2020-09-04] MEDS: PANTOPRAZOLE 40 MG TABLET PO (12:07)
[2020-09-04] MEDS: VITAMIN B CMPLX/VIT C/FOLIC AC 1 CAPSULE 1 CAP PO (12:07)
[2020-09-04] MEDS: FLUTICASONE PROPIONATE 0.05% NA SPR 16 GM BTL (*BKC) 2 SPRAY NASAL (12:08)
[2020-09-04] MEDS: LIDOCAINE 5% PATCH 2 PATCH TRANSDERM (12:20)
[2020-09-04 12:24] LABS: Glucose Point of Care 120 (65-105)
[2020-09-04] MEDS: HYDROcodone/acetaminophen (*CRX) 10-325 MG TABLET 1 TAB PO ×2 (13:45→19:59)
[2020-09-04 16:34] LABS: Glucose Point of Care 220 (65-105)
[2020-09-04] MEDS: INSULIN ASPART (*BKC) 100 UNITS/ML SUB-Q (17:04)
[2020-09-04] MEDS: rOPINIRole HCL 0.25 MG TABLET PO (17:06)
[2020-09-04] MEDS: AMITRIPTYLINE HCL 25 MG TABLET 50 MG PO (20:03)
[2020-09-04] MEDS: PRAVASTATIN SODIUM 20 MG TABLET PO (20:03)
[2020-09-04] MEDS: ASPIRIN 81 MG ENTERIC TABLET PO (20:03)
[2020-09-04] MEDS: MIRTAZAPINE 15 MG TABLET PO (20:04)
[2020-09-04 20:23] LABS: Glucose Point of Care 126 (65-105)
[2020-09-05 06:00] VITALS: BP 123/52; PULSE 61; RESP 16; TEMP 36.1; O2SAT 95
[2020-09-05] MEDS: LEVOTHYROXINE SODIUM 50 MCG TABLET PO (06:18)
[2020-09-05] MEDS: INSULIN GLARGINE (*BKC) 100 UNITS/ML 10 UNITS SUB-Q (06:19)
[2020-09-05 07:15] LABS: Glucose Point of Care 123 (65-105)
[2020-09-05] MEDS: HYDROcodone/acetaminophen (*CRX) 10-325 MG TABLET 1 TAB PO (07:39)
[2020-09-05] MEDS: ACETAMINOPHEN 500 MG TABLET 1000 MG PO ×2 (07:44→11:57)
[2020-09-05] MEDS: FLUTICASONE PROPIONATE 0.05% NA SPR 16 GM BTL (*BKC) 2 SPRAY NASAL (07:44)
[2020-09-05 07:45] VITALS: PULSE 68
[2020-09-05] MEDS: amLODIPine BESYLATE 5 MG TABLET 10 MG PO (07:45)
[2020-09-05] MEDS: ISOSORBIDE MONONITRATE 30 MG TAB.ER.24H PO (07:45)
[2020-09-05] MEDS: AMIODARONE HCL 200 MG TABLET PO (07:45)
[2020-09-05] MEDS: LORATADINE 10 MG TABLET PO (07:45)
[2020-09-05 07:46] VITALS: PULSE 68
[2020-09-05] MEDS: PANTOPRAZOLE 40 MG TABLET PO (07:46)
[2020-09-05] MEDS: DONEPEZIL HCL 10 MG TABLET PO (07:46)
[2020-09-05] MEDS: carvediloL 25 MG TABLET PO ×2 (07:46→20:15)
[2020-09-05] MEDS: lisinopriL 20 MG TABLET PO (07:46)
[2020-09-05] MEDS: SEVELAMER CARBONATE 800 MG TABLET PO ×3 (07:47→17:00)
[2020-09-05] MEDS: MONTELUKAST SODIUM 10 MG TABLET PO (07:47)
[2020-09-05] MEDS: CITALOPRAM HYDROBROMIDE 20 MG TABLET 40 MG PO (07:47)
[2020-09-05] MEDS: busPIRone HCL 10 MG TABLET PO ×2 (07:48→20:15)
[2020-09-05] MEDS: VITAMIN B CMPLX/VIT C/FOLIC AC 1 CAPSULE 1 CAP PO (07:49)
[2020-09-05] MEDS: LIDOCAINE 5% PATCH 2 PATCH TRANSDERM (07:49)
--- NOTE | 2020-09-05 08:56 | PCPTNOTE ---
Geni Ferreira was evaluated for a wheeled walker on 09/05/2020 by this physical therapist preschool assistant teacher. The wheeled walker will resolve patient's mobility limitations and will be used for ADL's within the home. The patient can safely use the wheeled walker. ?The wheeled walker will resolve the patient?s mobility deficits, including decreased strength, decreased endurance, and increased pain. Jaqueline Foley, TITLE CAMERA OPERATOR
--- NOTE | 2020-09-05 09:32 | WPDNEURORHBP ---
Subjective Date/time seen: 09/05/20 09:32 Interval history: Rehab diagnosis: non displaced left inferior pubic rami fracture 74-year-old female with past medical history of diabetes type 2 mellitus. Hypertension. Atrial fib on aspirin, and end-stage renal disease with hemodialysis Sunday who presented to [facility] on 08/28 for evaluation of left hip and pelvic pain after experience a fall 2 days prior. Imaging showed healing complete nondisplaced fracture through the midportion left inferior pubic rami. Patient is weight-bearing as tolerated left lower extremity and patient is now being transferred to acute rehab. Patient told staff member that she will call her pain doctor and get [place] if needed. Patient is aware that I will not write prescription Review of Systems Review of Systems: All systems reviewed & are unremarkable except as noted in HPI and below Functional Status Ambulation Ability Ability to Ambulate 10 Feet: Standby Assistance Ambulation Assistive Devices: Walker, Wheeled Exam Narrative: Exam Narrative: Patient in no acute distress. Patient is alert and oriented x3 pleasant. Head is normocephalic. Extraocular muscles are intact. Speech is fluent dentition is poor. Heart rate and rhythm is regular. Lungs are clear. Abdomen is obese soft nontender upper extremity strength are 4/5 right lower extremity strength is 4-5 left is painful with proximal strength being 3-4-/5 and distal strength 3- to 4+ Patient is at contact guard/SBA with gait for short distances. Objective Data Vital Signs Vital Signs: Vital Signs - 24 hr 09/04/20 09:45 09/04/20 10:00 09/04/20 10:15 Temperature Pulse Rate 68 62 62 Respiratory Rate Blood Pressure 147/67 H 126/61 116/57 L Pulse Oximetry 09/04/20 10:30 09/04/20 10:45 09/04/20 11:00 Temperature Pulse Rate 64 63 63 Respiratory Rate Blood Pressure 128/63 123/57 L 115/58 L Pulse Oximetry 09/04/20 11:15 09/04/20 11:25 09/04/20 11:40 Temperature 36.7 C Pulse Rate 63 68 68 Respiratory Rate 16 Blood Pressure 123/61 119/60 145/70 H Pulse Oximetry 09/04/20 12:06 09/04/20 12:07 09/04/20 14:00 Temperature 36.8 C Pulse Rate 68 68 61 Respiratory Rate 18 Blood Pressure 134/51 L Pulse Oximetry 98 09/04/20 20:01 09/04/20 20:25 09/04/20 20:55 Temperature 36.6 C Pulse Rate 62 61 61 Respiratory Rate 16 16 Blood Pressure 134/57 L Pulse Oximetry 98 98 09/05/20 06:00 09/05/20 07:45 09/05/20 07:46 Temperature 36.1 C L Pulse Rate 61 68 68 Respiratory Rate 16 Blood Pressure 123/52 L Pulse Oximetry 95 Intake/Output Intake/Output: Intake & Output 09/02/20 09/03/20 09/04/20 09/05/20 23:59 23:59 23:59 23:59 Intake Total 810 720 720 240 Output Total 2400 2000 Balance -1590 720 -1280 240 Meds/Results Medications: Active Medications Generic Name Dose Route Start Last Admin Trade Name Freq PRN Reason Stop Dose Admin Acetaminophen 1,000 mg 09/02/20 08:00 09/05/20 07:44 Acetaminophen 500 Mg Tablet PO 1,000 mg 0800,1200 DERRICK Administration Acetaminophen 650 mg 09/01/20 13:46 09/02/20 17:25 Acetaminophen 325 Mg Tablet PO 650 mg Q6H PRN Administration Mild Pain (1-3) or Fever Hydrocodone Bitart/Acetaminophen 1 tab 08/31/20 17:08 09/05/20 07:39 Hydrocodone/Acetaminophen (*Crx) 10-325 Mg Tablet PO 1 tab Q4H PRN Administration Pain Amiodarone HCl 200 mg 09/01/20 09:00 09/05/20 07:45 Amiodarone Hcl 200 Mg Tablet PO 200 mg DAILY DERRICK Administration Amitriptyline HCl 50 mg 08/31/20 21:00 09/04/20 20:03 Amitriptyline Hcl 25 Mg Tablet PO 50 mg HS DERRICK Administration Amlodipine Besylate 10 mg 09/01/20 09:00 09/05/20 07:45 Amlodipine Besylate 5 Mg Tablet PO 10 mg DAILY DERRICK Administration Aspirin 81 mg 08/31/20 21:00 09/04/20 20:03 Aspirin 81 Mg Enteric Tablet PO 81 mg HS DERRICK Administr
[2020-09-05 11:51] LABS: Glucose Point of Care 113 (65-105)
[2020-09-05 14:00] VITALS: BP 122/53; PULSE 59; RESP 18; TEMP 36.7; O2SAT 96
[2020-09-05 16:46] LABS: Glucose Point of Care 152 (65-105)
[2020-09-05] MEDS: rOPINIRole HCL 0.25 MG TABLET PO (17:00)
[2020-09-05 20:10] LABS: Glucose Point of Care 186 (65-105)
[2020-09-05 20:15] VITALS: PULSE 64
[2020-09-05] MEDS: AMITRIPTYLINE HCL 25 MG TABLET 50 MG PO (20:15)
[2020-09-05] MEDS: ASPIRIN 81 MG ENTERIC TABLET PO (20:16)
[2020-09-05] MEDS: PRAVASTATIN SODIUM 20 MG TABLET PO (20:17)
[2020-09-05] MEDS: MIRTAZAPINE 15 MG TABLET PO (20:18)
[2020-09-05 22:00] VITALS: BP 147/52; PULSE 63; RESP 16; TEMP 36.5; O2SAT 95
[2020-09-05] MEDS: ACETAMINOPHEN 325 MG TABLET 650 MG PO (22:23)
[2020-09-06 06:00] VITALS: BP 125/43; PULSE 62; RESP 16; TEMP 36.4; O2SAT 95
[2020-09-06 06:16] LABS: Glucose Point of Care 159 (65-105)
[2020-09-06] MEDS: LEVOTHYROXINE SODIUM 50 MCG TABLET PO (06:30)
[2020-09-06] MEDS: INSULIN GLARGINE (*BKC) 100 UNITS/ML 10 UNITS SUB-Q (06:31)
[2020-09-06] MEDS: ACETAMINOPHEN 500 MG TABLET 1000 MG PO ×2 (07:05→12:01)
--- NOTE | 2020-09-06 09:17 | PCPTNOTE ---
Jaqueline Foley PTA completed an inpatient rehab wheelchair evaluation on Geni Ferreira on 09/06/2020. The patient is unable to safely and independently ambulate household distances due to their current impairments. Their diagnosis is Lt. inferior pubic ramus and their impairments include decreased strength, decreased endurance, decreased range of motion, decreased balance, lower extremity weakness, and pain. Geni's weight bearing status is weight-bearing as tolerated on the Left lower leg and full weight-bearing on Right leg. The patient demonstrates significant functional mobility limitations that impair their ability to participate in mobility-related activities of daily living (MRADLs), including toileting, feeding, dressing, grooming, and bathing in the customary locations in the home. These limitations cannot be sufficiently resolved by the use of an appropriately fitted cane or walker. It is recommended that the patient utilize a wheelchair for functional mobility within the home in order to facilitate optimal safety, independence and participation in all MRADL's and adequately access their home environment on a regular basis. The patient's home provides adequate access between rooms, maneuvering space, and surfaces to accommodate the recommended wheelchair. The use of a wheelchair for functional mobility is strongly recommended and the patient is receptive to using the wheelchair. The use of this wheelchair will significantly improve the patient's ability to participate in MRADLS and the patient will use it on a regular basis in the home. This will facilitate optimal safety, independence, and participation. The patient has demonstrated sufficient physical and mental capabilities needed to safely propel a manual wheelchair that is provided in the home during a typical day. Recommended Wheelchair Frame: STANDARD Recommended Wheelchair Size: 20 X 20 Recommended Wheelchair Cushion: STANDARD Wheelchair Leg Recommendations: BILATERAL ELEVATING SWING AWAY LEG RESTS -Elevating legrests are recommended because the patient has significant edema of the lower extremities that requires an elevating legrest. -Anti-tippers are recommended due to patient demonstrating increased risk for falls. They would benefit from anti-tippers with added safety and stabilization. Jaqueline Foley PTA 09/06/20 Evaluating Therapist Date I agree with and certify that the above recommendation is medically necessary. Referring Physician Date I agree with and certify that the above recommendation is medically necessary. Referring Physician Date
[2020-09-06] MEDS: FLUTICASONE PROPIONATE 0.05% NA SPR 16 GM BTL (*BKC) 2 SPRAY NASAL (09:54)
[2020-09-06] MEDS: amLODIPine BESYLATE 5 MG TABLET 10 MG PO (09:55)
[2020-09-06] MEDS: SEVELAMER CARBONATE 800 MG TABLET PO ×3 (09:55→17:11)
[2020-09-06] MEDS: LIDOCAINE 5% PATCH 2 PATCH TRANSDERM (09:55)
[2020-09-06] MEDS: CITALOPRAM HYDROBROMIDE 20 MG TABLET 40 MG PO (09:55)
[2020-09-06] MEDS: MONTELUKAST SODIUM 10 MG TABLET PO (09:55)
[2020-09-06] MEDS: VITAMIN B CMPLX/VIT C/FOLIC AC 1 CAPSULE 1 CAP PO (09:55)
[2020-09-06] MEDS: busPIRone HCL 10 MG TABLET PO ×2 (09:55→20:29)
[2020-09-06] MEDS: LORATADINE 10 MG TABLET PO (09:55)
[2020-09-06 09:56] VITALS: PULSE 62
[2020-09-06] MEDS: DONEPEZIL HCL 10 MG TABLET PO (09:56)
[2020-09-06] MEDS: AMIODARONE HCL 200 MG TABLET PO (09:56)
[2020-09-06] MEDS: lisinopriL 20 MG TABLET PO (09:56)
[2020-09-06] MEDS: carvediloL 25 MG TABLET PO ×2 (09:56→20:29)
[2020-09-06] MEDS: ISOSORBIDE MONONITRATE 30 MG TAB.ER.24H PO (09:56)
[2020-09-06] MEDS: PANTOPRAZOLE 40 MG TABLET PO (09:56)
--- NOTE | 2020-09-06 11:28 | PM.PNNEP ---
Progress Note: A&P Assessment and Plan (1) End stage renal disease: Code(s): N18.6 - End stage renal disease Status: Chronic Assessment and Plan: HD today later. She has a little bit of swelling. Will take off some fluid today. (2) Fracture of left pelvis: Code(s): S32.9XXA - Fracture of unspecified parts of lumbosacral spine and pelvis, initial encounter for closed fracture Status: Acute Assessment and Plan: non-operative management pain control With Tylenol PT/OT as tolerated (3) Hypertension: Code(s): I10 - Essential (primary) hypertension Status: Chronic Assessment and Plan: systolic 120-140. follow trend of hemodynamics (4) Anemia: Code(s): D64.9 - Anemia, unspecified Status: Chronic Assessment and Plan: in range/at goal for ESRD adequate iron stores by anemia studies Epogen with HD Will check CBC today. (5) Renal osteodystrophy: Code(s): N25.0 - Renal osteodystrophy Status: Chronic Assessment and Plan: calcium okay but phosphorus elevated PTH mildly elevated as well will increase/titrate binders as needed Check a phosphorus level. (6) Debility: Code(s): R53.81 - Other malaise Status: Acute Assessment and Plan: PT/OT/rehab as tolerated Subjective Date/time seen: 09/06/20 11:28 Interval history: Noted is feeling okay today. She is getting some occupational therapy right now. She has a little bit of swelling she says. She is eating okay. She slept okay last night. She denies shortness of breath. Review of Systems Cardiovascular: Cardiovascular: Reports no additional cardiovascular complaints Respiratory: Respiratory: Reports no additional respiratory complaints Gastrointestinal: Gastrointestinal: Reports no additional gastrointestinal complaints Genitourinary: Genitourinary: Reports no additional female genitourinary complaints Exam Narrative: Exam Narrative: General: WD/WN female in NAD Heart: normal S1 and S2; no rub Or gallop Lungs: clear to auscultation Abdomen: soft, nontender, nondistended, positive bowel sounds Extremities: no cyanosis or clubbing; trace edema Skin: No rash. Objective Data Vital Signs Vital Signs: Vital Signs - 24 hr 09/05/20 14:00 09/05/20 20:15 09/05/20 22:00 Temperature 36.7 C 36.5 C Pulse Rate 59 L 64 63 Respiratory Rate 18 16 Blood Pressure 122/53 L 147/52 H Pulse Oximetry 96 95 09/06/20 06:00 09/06/20 09:56 Temperature 36.4 C Pulse Rate 62 62 Respiratory Rate 16 Blood Pressure 125/43 L Pulse Oximetry 95 Intake/Output Intake/Output: Intake & Output 09/03/20 09/04/20 09/05/20 09/06/20 23:59 23:59 23:59 23:59 Intake Total 720 720 720 240 Output Total 1999 Balance 720 -1280 720 240 Meds/Results Medications: Active Medications Generic Name Dose Route Start Last Admin Trade Name Freq PRN Reason Stop Dose Admin Acetaminophen 1,000 mg 09/02/20 08:00 09/06/20 07:05 Acetaminophen 500 Mg Tablet PO 1,000 mg 0800,1200 DERRICK Administration Acetaminophen 650 mg 09/01/20 13:46 09/05/20 22:23 Acetaminophen 325 Mg Tablet PO 650 mg Q6H PRN Administration Mild Pain (1-3) or Fever Hydrocodone Bitart/Acetaminophen 1 tab 09/05/20 09:37 Hydrocodone/Acetaminophen (*Crx) 5-325 Mg Tablet PO DAILY PRN Pain Rated 4-6 Amiodarone HCl 200 mg 09/01/20 09:00 09/06/20 09:56 Amiodarone Hcl 200 Mg Tablet PO 200 mg DAILY DERRICK Administration Amitriptyline HCl 50 mg 08/31/20 21:00 09/05/20 20:15 Amitriptyline Hcl 25 Mg Tablet PO 50 mg HS DERRICK Administration Amlodipine Besylate 10 mg 09/01/20 09:00 09/06/20 09:55 Amlodipine Besylate 5 Mg Tablet PO 10 mg DAILY DERRICK Administration Aspirin 81 mg 08/31/20 21:00 09/05/20 20:16 Aspirin 81 Mg Enteric Tablet PO 81 mg HS DERRICK Administration Buspirone HCl 10 mg
[2020-09-06 11:33] LABS: Glucose Point of Care 165 (65-105)
[2020-09-06 14:00] VITALS: BP 112/45; PULSE 56; RESP 18; TEMP 36.9; O2SAT 97
--- NOTE | 2020-09-06 16:39 | WPDNEURORHBP ---
Subjective Date/time seen: 09/06/20 16:39 Interval history: Patient seen in the gym. Patient complains of pain but can freely move legs. Pain is noted with weightbearing. Review of Systems Review of Systems: All systems reviewed & are unremarkable except as noted in HPI and below Functional Status Ambulation Ability Ability to Ambulate 10 Feet: Independent Ambulation Assistive Devices: Walker, Wheeled Exam Narrative: Exam Narrative: Patient in no acute distress. Patient is alert and oriented x3 pleasant. Head is normocephalic. Extraocular muscles are intact. Speech is fluent dentition is poor. Heart rate and rhythm is regular. Lungs are clear. Abdomen is obese soft nontender upper extremity strength are 4/5 right lower extremity strength is 4-5 left is painful with proximal strength being 3-4-/5 and distal strength 3- to 4+ Patient is independent with gait for short distances of 10 feet. Objective Data Vital Signs Vital Signs: Vital Signs - 24 hr 09/05/20 20:15 09/05/20 22:00 09/06/20 06:00 Temperature 36.5 C 36.4 C Pulse Rate 64 63 62 Respiratory Rate 16 16 Blood Pressure 147/52 H 125/43 L Pulse Oximetry 95 95 09/06/20 09:56 09/06/20 14:00 Temperature 36.9 C Pulse Rate 62 56 L Respiratory Rate 18 Blood Pressure 112/45 L Pulse Oximetry 97 Intake/Output Intake/Output: Intake & Output 09/03/20 09/04/20 09/05/20 09/06/20 23:59 23:59 23:59 23:59 Intake Total 720 720 720 480 Output Total 1999 Balance 720 -1280 720 480 Meds/Results Medications: Active Medications Generic Name Dose Route Start Last Admin Trade Name Freq PRN Reason Stop Dose Admin Acetaminophen 1,000 mg 09/02/20 08:00 09/06/20 12:01 Acetaminophen 500 Mg Tablet PO 1,000 mg 0800,1200 DERRICK Administration Acetaminophen 650 mg 09/01/20 13:46 09/05/20 22:23 Acetaminophen 325 Mg Tablet PO 650 mg Q6H PRN Administration Mild Pain (1-3) or Fever Hydrocodone Bitart/Acetaminophen 1 tab 09/05/20 09:37 Hydrocodone/Acetaminophen (*Crx) 5-325 Mg Tablet PO DAILY PRN Pain Rated 4-6 Amiodarone HCl 200 mg 09/01/20 09:00 09/06/20 09:56 Amiodarone Hcl 200 Mg Tablet PO 200 mg DAILY DERRICK Administration Amitriptyline HCl 50 mg 08/31/20 21:00 09/05/20 20:15 Amitriptyline Hcl 25 Mg Tablet PO 50 mg HS DERRICK Administration Amlodipine Besylate 10 mg 09/01/20 09:00 09/06/20 09:55 Amlodipine Besylate 5 Mg Tablet PO 10 mg DAILY DERRICK Administration Aspirin 81 mg 08/31/20 21:00 09/05/20 20:16 Aspirin 81 Mg Enteric Tablet PO 81 mg HS DERRICK Administration Buspirone HCl 10 mg 08/31/20 21:00 09/06/20 09:55 Buspirone Hcl 10 Mg Tablet PO 10 mg Q12HR DERRICK Administration Carvedilol 25 mg 08/31/20 21:00 09/06/20 09:56 Carvedilol 25 Mg Tablet PO 25 mg Q12HR DERRICK Administration Citalopram Hydrobromide 40 mg 09/03/20 09:00 09/06/20 09:55 Citalopram Hydrobromide 20 Mg Tablet PO 40 mg DAILY DERRICK Administration Dextrose 12.5 gm 08/31/20 16:31 Dextrose 50% 25 Gm/50 Ml Syringe IV PUSH PRN PRN Hypoglycemia Protocol Donepezil HCl 10 mg 09/01/20 09:00 09/06/20 09:56 Donepezil Hcl 10 Mg Tablet PO 10 mg DAILY DERRICK Administration Epoetin Conor-epbx 10,000 units 09/06/20 18:00 Epoetin Conor-Epbx 10,000 Units/Ml Vial IV PUSH [id number] [facility] Ergocalciferol 50,000 unit 09/02/20 09:00 09/02/20 07:55 Ergocalciferol 50,000 Unit Capsule PO 50,000 unit MONTHLY [facility] Administration Fluticasone Propionate 2 spray 09/01/20 09:00 09/06/20 09:54 Fluticasone Propionate 0.05% Na Spr 16 Gm Btl (*Bkc) NASAL 2 spray DAILY DERRICK Administration Glucagon 1 mg 08/31/20 16:31 Glucagon For Inj 1 Mg Vial IM PRN PRN Hypoglycemia Protocol Glucose 15 gm 08/31/20 16:31 Glucose Oral Gel 15 Gm Of Glucse In 37.5 Gm Tube PO PRN PRN Hypoglycemia Protocol Dextrose 1,000 mls @
[2020-09-06 16:58] LABS: Glucose Point of Care 225 (65-105)
[2020-09-06] MEDS: INSULIN ASPART (*BKC) 100 UNITS/ML SUB-Q (17:02)
[2020-09-06] MEDS: rOPINIRole HCL 0.25 MG TABLET PO (17:12)
--- NOTE | 2020-09-06 18:24 | PC.NURSE ---
Dialysis Nurse called to update nursing staff that patient would not be going to dialysis today. Patient will go tomorrow morning.
[2020-09-06] MEDS: ACETAMINOPHEN 325 MG TABLET 650 MG PO (18:39)
[2020-09-06 20:29] VITALS: PULSE 62
[2020-09-06] MEDS: ASPIRIN 81 MG ENTERIC TABLET PO (20:29)
[2020-09-06] MEDS: MIRTAZAPINE 15 MG TABLET PO (20:29)
[2020-09-06] MEDS: PRAVASTATIN SODIUM 20 MG TABLET PO (20:29)
[2020-09-06] MEDS: AMITRIPTYLINE HCL 25 MG TABLET 50 MG PO (20:29)
[2020-09-06 22:00] VITALS: BP 127/39; PULSE 68; RESP 16; TEMP 36.8; O2SAT 96
[2020-09-07] VITALS (24 sets, daily range): BP systolic 124–170; BP diastolic 50–78; PULSE 59–65; RESP 16–20; TEMP 36–37; O2SAT 96–99
[2020-09-07] MEDS: LEVOTHYROXINE SODIUM 50 MCG TABLET PO (06:08)
[2020-09-07] MEDS: INSULIN GLARGINE (*BKC) 100 UNITS/ML 10 UNITS SUB-Q (06:10)
[2020-09-07 06:20] LABS: Glucose Point of Care 126 (65-105)
[2020-09-07] MEDS: EPOETIN ALFA-EPBX 10,000 UNITS/ML VIAL 10000 UNITS IV PUSH (10:03)
--- NOTE | 2020-09-07 10:25 | PM.PNNEP ---
Progress Note: A&P Assessment and Plan (1) End stage renal disease: Code(s): N18.6 - End stage renal disease Status: Chronic Assessment and Plan: HD in process. She has Swelling bilaterally. Will take fluid off. She has new swelling on the left side. This may be related to the fracture on the left but also could be a DVT so will check venous Dopplers. (2) Fracture of left pelvis: Code(s): S32.9XXA - Fracture of unspecified parts of lumbosacral spine and pelvis, initial encounter for closed fracture Status: Acute Assessment and Plan: non-operative management pain control With Tylenol PT/OT as tolerated (3) Hypertension: Code(s): I10 - Essential (primary) hypertension Status: Chronic Assessment and Plan: systolic 140-161 this should improve with fluid removal (4) Anemia: Code(s): D64.9 - Anemia, unspecified Status: Chronic Assessment and Plan: in range/at goal for ESRD adequate iron stores by anemia studies Epogen with HD Will check CBC today. (5) Renal osteodystrophy: Code(s): N25.0 - Renal osteodystrophy Status: Chronic Assessment and Plan: calcium okay but phosphorus elevated PTH mildly elevated as well will increase/titrate binders as needed Check a phosphorus level. (6) Debility: Code(s): R53.81 - Other malaise Status: Acute Assessment and Plan: PT/OT/rehab as tolerated Subjective Date/time seen: 09/07/20 10:25 Interval history: Geni has some swelling. This is worse on the left. The fact that it is worse on the left is new. She says it was not like that over the weekend. She has no pain in the left lower extremity. She is on dialysis and tolerating it well. The blood pressure is doing well so we are going for about 3L. She was seen at 10:00 a.m. She is eating okay. She slept okay last night. She denies shortness of breath. Review of Systems Cardiovascular: Cardiovascular: Reports no additional cardiovascular complaints Respiratory: Respiratory: Reports no additional respiratory complaints Gastrointestinal: Gastrointestinal: Reports no additional gastrointestinal complaints Genitourinary: Genitourinary: Reports no additional female genitourinary complaints Exam Narrative: Exam Narrative: General: WD/WN female in NAD Heart: normal S1 and S2; no rub Or gallop Lungs: clear to auscultation Abdomen: soft, nontender, nondistended, positive bowel sounds Extremities: no cyanosis or clubbing; trace edema on the right and 1+ on the left Skin: No rash. Objective Data Vital Signs Vital Signs: Vital Signs - 24 hr 09/06/20 14:00 09/06/20 20:29 09/06/20 22:00 Temperature 36.9 C 36.8 C Pulse Rate 56 L 62 68 Respiratory Rate 18 16 Blood Pressure 112/45 L 127/39 L Pulse Oximetry 97 96 09/07/20 06:00 09/07/20 07:10 09/07/20 07:22 Temperature 36.2 C L 36.6 C Pulse Rate 63 61 64 Respiratory Rate 16 16 Blood Pressure 138/56 L 151/71 H 156/73 H Pulse Oximetry 96 09/07/20 07:30 09/07/20 07:45 09/07/20 08:00 Temperature Pulse Rate 60 60 59 L Respiratory Rate Blood Pressure 170/73 H 152/64 H 140/65 Pulse Oximetry 09/07/20 08:15 09/07/20 08:30 09/07/20 08:45 Temperature Pulse Rate 61 60 60 Respiratory Rate Blood Pressure 154/70 H 149/68 H 149/69 H Pulse Oximetry 09/07/20 09:00 09/07/20 09:15 09/07/20 09:30 Temperature Pulse Rate 65 63 62 Respiratory Rate Blood Pressure 150/78 H 152/72 H 155/58 H Pulse Oximetry 09/07/20 09:45 09/07/20 10:00 09/07/20 10:15 Temperature Pulse Rate 61 61 63 Respiratory Rate Blood Pressure 147/64 H 161/70 H 156/72 H Pulse Oximetry Intake/Output Intake/Output: Intake & Output 09/04/20 09/05/20 09/06/20 09/07/20 23:59 23:59 23:59 23:59 Intake Total 720 720 720 240 Output Total 1999 Balance -1280 314 720 240
[2020-09-07] MEDS: carvediloL 25 MG TABLET PO ×2 (11:31→21:04)
[2020-09-07] MEDS: VITAMIN B CMPLX/VIT C/FOLIC AC 1 CAPSULE 1 CAP PO (11:31)
[2020-09-07] MEDS: DONEPEZIL HCL 10 MG TABLET PO (11:31)
[2020-09-07] MEDS: AMIODARONE HCL 200 MG TABLET PO (11:32)
[2020-09-07] MEDS: amLODIPine BESYLATE 5 MG TABLET 10 MG PO (11:32)
[2020-09-07] MEDS: busPIRone HCL 10 MG TABLET PO ×2 (11:32→21:04)
[2020-09-07] MEDS: CITALOPRAM HYDROBROMIDE 20 MG TABLET 40 MG PO (11:33)
[2020-09-07] MEDS: ISOSORBIDE MONONITRATE 30 MG TAB.ER.24H PO (11:33)
[2020-09-07] MEDS: FLUTICASONE PROPIONATE 0.05% NA SPR 16 GM BTL (*BKC) 2 SPRAY NASAL (11:33)
[2020-09-07] MEDS: LORATADINE 10 MG TABLET PO (11:34)
[2020-09-07] MEDS: MONTELUKAST SODIUM 10 MG TABLET PO (11:34)
[2020-09-07] MEDS: lisinopriL 20 MG TABLET PO (11:34)
[2020-09-07] MEDS: LIDOCAINE 5% PATCH 2 PATCH TRANSDERM (11:34)
[2020-09-07] MEDS: ACETAMINOPHEN 500 MG TABLET 1000 MG PO ×2 (11:35→17:11)
[2020-09-07] MEDS: PANTOPRAZOLE 40 MG TABLET PO (11:35)
[2020-09-07] MEDS: SEVELAMER CARBONATE 800 MG TABLET PO ×2 (11:38→17:10)
[2020-09-07 12:07] LABS: Glucose Point of Care 100 (65-105)
--- NOTE | 2020-09-07 15:27 | PCPTNOTE ---
The patient treatment was not able to be completed on 09/07/20 due to Patient being off unit for dialysis in AM. Patient completed 30 minutes of PT this date. Will plan to continue treatment per plan of care. Jaqueline Foley
--- NOTE | 2020-09-07 16:07 | WPDNEURORHBP ---
Subjective Date/time seen: 09/07/20 16:07 Interval history: 74-year-old female with past medical history of diabetes type 2 mellitus. Hypertension. Atrial fib on aspirin, and end-stage renal disease with hemodialysis Sunday who presented to [facility] on 08/28 for evaluation of left hip and pelvic pain after experience a fall 2 days prior. Imaging showed healing complete nondisplaced fracture through the midportion left inferior pubic rami. Patient is weight-bearing as tolerated left lower extremity and patient is now being transferred to acute rehab. Patient complains of chronic low back pain. Patient complains of lower extremity swelling. Doppler will be obtained Review of Systems Review of Systems: All systems reviewed & are unremarkable except as noted in HPI and below Functional Status Ambulation Ability Ability to Ambulate 10 Feet: Independent Ambulation Assistive Devices: Walker, Standard Exam Narrative: Exam Narrative: Patient in no acute distress. Patient is alert and oriented x3 pleasant. Head is normocephalic. Extraocular muscles are intact. Speech is fluent dentition is poor. Heart rate and rhythm is regular. Lungs are clear. Abdomen is obese soft nontender upper extremity strength are 4/5 right lower extremity strength is 4-5 left is painful with proximal strength being 3-4-/5 and distal strength 3- to 4+ Patient is independent with gait for short distances of 10 feet. patient is independent with bed mobility and transfers. Patient requires minimal assistance for going up 4 steps. Patient requires minimal assistance for footwear Objective Data Vital Signs Vital Signs: Vital Signs - 24 hr 09/06/20 20:29 09/06/20 22:00 09/07/20 06:00 Temperature 36.8 C 36.2 C L Pulse Rate 62 68 63 Respiratory Rate 16 16 Blood Pressure 127/39 L 138/56 L Pulse Oximetry 96 96 09/07/20 07:10 09/07/20 07:22 09/07/20 07:30 Temperature 36.6 C Pulse Rate 61 64 60 Respiratory Rate 16 Blood Pressure 151/71 H 156/73 H 170/73 H Pulse Oximetry 09/07/20 07:45 09/07/20 08:00 09/07/20 08:15 Temperature Pulse Rate 60 63 61 Respiratory Rate 16 Blood Pressure 152/64 H 140/65 154/70 H Pulse Oximetry 96 09/07/20 08:30 09/07/20 08:45 09/07/20 09:00 Temperature Pulse Rate 60 60 65 Respiratory Rate Blood Pressure 149/68 H 149/69 H 150/78 H Pulse Oximetry 09/07/20 09:15 09/07/20 09:30 09/07/20 09:45 Temperature Pulse Rate 63 62 61 Respiratory Rate Blood Pressure 152/72 H 155/58 H 147/64 H Pulse Oximetry 09/07/20 10:00 09/07/20 10:15 09/07/20 10:35 Temperature Pulse Rate 61 63 64 Respiratory Rate Blood Pressure 161/70 H 156/72 H 156/65 H Pulse Oximetry 09/07/20 10:52 09/07/20 11:09 09/07/20 11:31 Temperature 36.8 C Pulse Rate 63 63 63 Respiratory Rate 16 Blood Pressure 148/72 H 168/63 H Pulse Oximetry 09/07/20 11:32 09/07/20 14:00 Temperature 36.8 C Pulse Rate 63 59 L Respiratory Rate 20 Blood Pressure 124/54 L Pulse Oximetry 99 Intake/Output Intake/Output: Intake & Output 09/04/20 09/05/20 09/06/20 09/07/20 23:59 23:59 23:59 23:59 Intake Total 720 720 720 480 Output Total 2000 3000 Balance -1280 720 720 -1040 Meds/Results Medications: Active Medications Generic Name Dose Route Start Last Admin Trade Name Chidiq PRN Reason Stop Dose Admin Acetaminophen 1,000 mg 09/02/20 08:00 09/07/20 11:35 Acetaminophen 500 Mg Tablet PO 1,000 mg 0800,1200 [facility] Administration Acetaminophen 650 mg 09/01/20 13:46 09/06/20 18:39 Acetaminophen 325 Mg Tablet PO 650 mg Q6H PRN Administration Mild Pain (1-3) or Fever Acetaminophen 1,000 mg 09/06/20 17:00 09/07/20 11:31 Acetaminophen 500 Mg Tablet PO Not Given BID DERRICK Hydrocodone Bitart/Acetaminophen 1 tab 09/05/20 09:37 Hydrocodone/Acetaminophen (*Crx) 5-325 Mg Tablet PO DAILY PRN Pain Rated 4-
[2020-09-07 16:55] LABS: Glucose Point of Care 180 (65-105)
[2020-09-07] MEDS: rOPINIRole HCL 0.25 MG TABLET PO (17:11)
--- NOTE | 2020-09-07 19:42 | PC.NURSE ---
0900 meds given late this a.m. due to patient being in dialysis.
[2020-09-07] MEDS: PRAVASTATIN SODIUM 20 MG TABLET PO (21:04)
[2020-09-07] MEDS: ASPIRIN 81 MG ENTERIC TABLET PO (21:04)
[2020-09-07] MEDS: MIRTAZAPINE 15 MG TABLET PO (21:04)
[2020-09-07] MEDS: AMITRIPTYLINE HCL 25 MG TABLET 50 MG PO (21:07)
[2020-09-07] MEDS: ACETAMINOPHEN 325 MG TABLET 650 MG PO (21:15)
[2020-09-07 21:59] LABS: Glucose Point of Care 241 (65-105)
[2020-09-08] VITALS (24 sets, daily range): BP systolic 127–152; BP diastolic 44–73; PULSE 56–60; RESP 18–20; TEMP 35.8–37; O2SAT 95–100
[2020-09-08 05:02] LABS: Basophils Percent Auto 0.8 % (0.2-1.2); Eosinophils Absolute Auto 0.1 K/mm3 (0-0.3); Eosinophils Percent Auto 2.3 % (0-4.4); Hematocrit 28.4 % (37.0-47.0); Hemoglobin 9.5 g/dL (12.0-15.0); Immature Granulocyte Absolute 0.01 K/mm3 (0.00-0.031); Immature Granulocyte Percent A 0.3 % (0-0.5); Lymphocytes Percent Auto 30.5 % (18.3-44.2); Mean Corpuscular HGB Conc 33.5 g/dl (32-36); Mean Corpuscular Hemoglobin 32.5 pg (26-34); Mean Corpuscular Volume 97.3 fl (80-100); Mean Platelet Volume 10.6 fl (7.4-10.4); Monocytes Absolute Auto 0.5 K/mm3 (0.1-0.6); Neutrophils Absolute Auto 2.1 K/mm3 (1.3-6.7); Neutrophils Percent Auto 53.1 % (45.5-73.1); Platelet Count Result 174 k/mm3 (150-375); Red Blood Count 2.92 M/mm3 (4.2-5.4); White Blood Count 3.9 K/mm3 (4.5-10.0)
[2020-09-08 05:33] LABS: Alanine Aminotransferase 20 U/L (4-35); Albumin Level 3.2 g/dL (3.5-5.1); Alkaline Phosphatase 150 U/L (38-126); Anion Gap 5 mmol/L (8-16); Aspartate Amino Transferase 22 U/L (14-36); Bilirubin,Total 0.4 mg/dL (0.2-1.3); Blood Urea Nitrogen 26 mg/dL (7-17); Calcium 8.5 mg/dL (8.4-10.2); Carbon Dioxide 30 mmol/L (22-30); Chloride 99 mmol/L (98-107); Estimated CRCL calculation 11 ml/min; Estimated Glomerular Filt Rate 10; Glucose 161 mg/dL (65-105); Phosphorus 3.8 mg/dL (2.5-4.5); Potassium 4.1 mmol/L (3.4-5.0); Sodium 134 mmol/L (137-145)
[2020-09-08] MEDS: LEVOTHYROXINE SODIUM 50 MCG TABLET PO (06:27)
[2020-09-08] MEDS: INSULIN GLARGINE (*BKC) 100 UNITS/ML 10 UNITS SUB-Q (06:28)
[2020-09-08 06:52] LABS: Glucose Point of Care 159 (65-105)
[2020-09-08] MEDS: ACETAMINOPHEN 500 MG TABLET 1000 MG PO ×2 (09:19→12:34)
[2020-09-08] MEDS: SEVELAMER CARBONATE 800 MG TABLET PO ×2 (09:20→12:35)
[2020-09-08] MEDS: VITAMIN B CMPLX/VIT C/FOLIC AC 1 CAPSULE 1 CAP PO (09:20)
[2020-09-08] MEDS: LORATADINE 10 MG TABLET PO (09:21)
[2020-09-08] MEDS: LIDOCAINE 5% PATCH 2 PATCH TRANSDERM (09:21)
[2020-09-08] MEDS: PANTOPRAZOLE 40 MG TABLET PO (09:21)
[2020-09-08] MEDS: lisinopriL 20 MG TABLET PO (09:21)
[2020-09-08] MEDS: CITALOPRAM HYDROBROMIDE 20 MG TABLET 40 MG PO (09:22)
[2020-09-08] MEDS: FLUTICASONE PROPIONATE 0.05% NA SPR 16 GM BTL (*BKC) 2 SPRAY NASAL (09:22)
[2020-09-08] MEDS: ISOSORBIDE MONONITRATE 30 MG TAB.ER.24H PO (09:22)
[2020-09-08] MEDS: carvediloL 25 MG TABLET PO ×2 (09:22→21:03)
[2020-09-08] MEDS: DONEPEZIL HCL 10 MG TABLET PO (09:22)
[2020-09-08] MEDS: MONTELUKAST SODIUM 10 MG TABLET PO (09:23)
[2020-09-08] MEDS: AMIODARONE HCL 200 MG TABLET PO (09:23)
[2020-09-08] MEDS: amLODIPine BESYLATE 5 MG TABLET 10 MG PO (09:23)
[2020-09-08] MEDS: busPIRone HCL 10 MG TABLET PO ×2 (09:23→21:07)
[2020-09-08 11:55] LABS: Glucose Point of Care 119 (65-105)
--- NOTE | 2020-09-08 12:45 | PCDIET ---
Nutrition Follow-Up Complete: Nutrition Diagnosis: Increased protein needs related to dialysis as evidenced by renal dialysis diet. Nutrition Goal: Patient to continue consuming 75% or more of meals on current diet order. Goal met. Patient has consumed an average of 90% of recorded meals since 09/02/20. Remains on renal dialysis diet. Reports good appetite and denies c/o or concerns. Last recorded weight is 87.7 kg which is down from last review. Bowel Motility: Last BM on 09/05/20. Labs Reviewed: Hgb (9.5), Hct (28.4), Glu (161), BUN (26), Cr (4.3), Na (134), Alb (3.2) Meds Noted: Elavil, Lantus, Imdur, Renvela, Norvasc, Novolog, Coreg, Retacrit, Pravastatin, Aricept, Drisdol, Remeron, Nephrocaps, Synthroid, Lisinopril, Protonix Additional Notes: No skin breakdown documented. Will continue to monitor with same goal. Nutrition Monitoring and Evaluation: Follow up in 7 days.
--- NOTE | 2020-09-08 13:41 | WPDNEURORHBP ---
Subjective Date/time seen: 09/08/20 13:41 Interval history: 74-year-old female with past medical history of diabetes type 2 mellitus. Hypertension. Atrial fib on aspirin, and end-stage renal disease with hemodialysis Sunday who presented to [facility] on 08/28 for evaluation of left hip and pelvic pain after experience a fall 2 days prior. Imaging showed healing complete nondisplaced fracture through the midportion left inferior pubic rami. Patient is weight-bearing as tolerated left lower extremity and patient is now being transferred to acute rehab. Patient complains of chronic low back pain. Patient complains of lower extremity swelling. Doppler was negative Review of Systems Review of Systems: All systems reviewed & are unremarkable except as noted in HPI and below Functional Status Ambulation Ability Ability to Ambulate 10 Feet: Independent Ability to Ambulate 50 Feet With 2 Turns: Independent Ambulation Assistive Devices: Walker, Standard Exam Narrative: Exam Narrative: Patient in no acute distress. Patient is alert and oriented x3 pleasant. Head is normocephalic. Extraocular muscles are intact. Speech is fluent dentition is poor. Heart rate and rhythm is regular. Lungs are clear. Abdomen is obese soft nontender upper extremity strength are 4/5 right lower extremity strength is 4-5 left is painful with proximal strength being 3-4-/5 and distal strength 3- to 4+ Patient is independent with gait for short distances of 10 feet. patient is independent with bed mobility and transfers. Patient requires minimal assistance for verbal cues for going up and down 4 steps. Patient requires minimal assistance for footwear Objective Data Vital Signs Vital Signs: Vital Signs - 24 hr 09/07/20 14:00 09/07/20 21:04 09/07/20 21:15 Temperature 36.8 C Pulse Rate 59 L 64 63 Respiratory Rate 20 18 Blood Pressure 124/54 L Pulse Oximetry 99 98 09/07/20 21:31 09/08/20 05:33 09/08/20 09:22 Temperature 36.6 C 36.1 C L Pulse Rate 63 59 L 59 L Respiratory Rate 18 20 Blood Pressure 131/50 L 132/50 L Pulse Oximetry 98 96 09/08/20 09:23 Temperature Pulse Rate 59 L Respiratory Rate Blood Pressure Pulse Oximetry Intake/Output Intake/Output: Intake & Output 09/05/20 09/06/20 09/07/2007/21 23:59 23:59 23:59 23:59 Intake Total 720 720 720 480 Output Total 3000 Balance 720 720 -9690 480 Meds/Results Medications: Active Medications Generic Name Dose Route Start Last Admin Trade Name Shaq PRN Reason Stop Dose Admin Acetaminophen 1,000 mg 09/02/20 08:00 09/08/20 12:34 Acetaminophen 500 Mg Tablet PO 1,000 mg 0800,1200 DERRICK Administration Acetaminophen 650 mg 09/01/20 13:46 09/07/20 21:15 Acetaminophen 325 Mg Tablet PO 650 mg Q6H PRN Administration Mild Pain (1-3) or Fever Hydrocodone Bitart/Acetaminophen 1 tab 09/05/20 09:37 Hydrocodone/Acetaminophen (*Crx) 5-325 Mg Tablet PO DAILY PRN Pain Rated 4-6 Amiodarone HCl 200 mg 09/01/20 09:00 09/08/20 09:23 Amiodarone Hcl 200 Mg Tablet PO 200 mg DAILY DERRICK Administration Amitriptyline HCl 50 mg 08/31/20 21:00 09/07/20 21:07 Amitriptyline Hcl 25 Mg Tablet PO 50 mg HS DERRICK Administration Amlodipine Besylate 10 mg 09/01/20 09:00 09/08/20 09:23 Amlodipine Besylate 5 Mg Tablet PO 10 mg DAILY DERRICK Administration Aspirin 81 mg 08/31/20 21:00 09/07/20 21:04 Aspirin 81 Mg Enteric Tablet PO 81 mg HS DERRICK Administration Buspirone HCl 10 mg 08/31/20 21:00 09/08/20 09:23 Buspirone Hcl 10 Mg Tablet PO 10 mg Q12HR DERRICK Administration Carvedilol 25 mg 08/31/20 21:00 09/08/20 09:22 Carvedilol 25 Mg Tablet PO 25 mg Q12HR DERRICK Administration Citalopram Hydrobromide 40 mg 09/03/20 09:00 09/08/20 09:22 Citalopram Hydrobromide 20 Mg Tablet PO 40 mg DAILY DERRICK Administration Dextrose 12.5 gm 08/31/20 16:31
--- NOTE | 2020-09-08 17:46 | PM.PNNEP ---
Progress Note: A&P Assessment and Plan (1) End stage renal disease: Code(s): N18.6 - End stage renal disease Status: Chronic Assessment and Plan: HD in process. doing well with 3L being removed. She has Swelling bilaterally. Will take fluid off. Venous Dopplers are negative (2) Fracture of left pelvis: Code(s): S32.9XXA - Fracture of unspecified parts of lumbosacral spine and pelvis, initial encounter for closed fracture Status: Acute Assessment and Plan: non-operative management pain control With Tylenol PT/OT as tolerated (3) Hypertension: Code(s): I10 - Essential (primary) hypertension Status: Chronic Assessment and Plan: systolic 130-161 this should improve with fluid removal (4) Anemia: Code(s): D64.9 - Anemia, unspecified Status: Chronic Assessment and Plan: in range/at goal for ESRD adequate iron stores by anemia studies Epogen with HD hemoglobin 9.5 (5) Renal osteodystrophy: Code(s): N25.0 - Renal osteodystrophy Status: Chronic Assessment and Plan: calcium and phosphorus are okay (6) Debility: Code(s): R53.81 - Other malaise Status: Acute Assessment and Plan: PT/OT/rehab as tolerated Subjective Date/time seen: 09/08/20 17:46 Interval history: Geni is feeling about the same. She is on dialysis. She is tolerating it well. She was seen at 4:45 p.m. Exam Narrative: Exam Narrative: General: WD/WN female in NAD Heart: normal S1 and S2; no rub Or gallop Lungs: clear to auscultation Abdomen: soft, nontender, nondistended, positive bowel sounds Extremities: no cyanosis or clubbing; trace edema on the right and 1+ on the left Skin: No rash. Objective Data Vital Signs Vital Signs: Vital Signs - 24 hr 09/07/20 21:04 09/07/20 21:15 09/07/20 21:31 Temperature 36.6 C Pulse Rate 64 63 63 Respiratory Rate 18 18 Blood Pressure 131/50 L Pulse Oximetry 98 98 09/08/20 05:33 09/08/20 09:22 09/08/20 09:23 Temperature 36.1 C L Pulse Rate 59 L 59 L 59 L Respiratory Rate 20 Blood Pressure 132/50 L Pulse Oximetry 96 09/08/20 14:00 Temperature 36.8 C Pulse Rate 60 Respiratory Rate 20 Blood Pressure 141/56 H Pulse Oximetry 100 Intake/Output Intake/Output: Intake & Output 09/05/20 09/06/20 09/07/20 09/08/20 23:59 23:59 23:59 23:59 Intake Total 720 720 720 480 Output Total 3000 Balance 720 720 -7990 480 Meds/Results Medications: Active Medications Generic Name Dose Route Start Last Admin Trade Name Freq PRN Reason Stop Dose Admin Acetaminophen 1,000 mg 09/02/20 08:00 09/08/20 12:34 Acetaminophen 500 Mg Tablet PO 1,000 mg 0800,1200 DERRICK Administration Acetaminophen 650 mg 09/01/20 13:46 09/07/20 21:15 Acetaminophen 325 Mg Tablet PO 650 mg Q6H PRN Administration Mild Pain (1-3) or Fever Hydrocodone Bitart/Acetaminophen 1 tab 09/05/20 09:37 Hydrocodone/Acetaminophen (*Crx) 5-325 Mg Tablet PO DAILY PRN Pain Rated 4-6 Amiodarone HCl 200 mg 09/01/20 09:00 09/08/20 09:23 Amiodarone Hcl 200 Mg Tablet PO 200 mg DAILY DERRICK Administration Amitriptyline HCl 50 mg 08/31/20 21:00 09/07/20 21:07 Amitriptyline Hcl 25 Mg Tablet PO 50 mg HS DERRICK Administration Amlodipine Besylate 10 mg 09/01/20 09:00 09/08/20 09:23 Amlodipine Besylate 5 Mg Tablet PO 10 mg DAILY DERRICK Administration Aspirin 81 mg 08/31/20 21:00 09/07/20 21:04 Aspirin 81 Mg Enteric Tablet PO 81 mg HS DERRICK Administration Buspirone HCl 10 mg 08/31/20 21:00 09/08/20 09:23 Buspirone Hcl 10 Mg Tablet PO 10 mg Q12HR DERRICK Administration Carvedilol 25 mg 08/31/20 21:00 09/08/20 09:22 Carvedilol 25 Mg Tablet PO 25 mg Q12HR DERRICK Administration Citalopram Hydrobromide 40 mg 09/03/20 09:00 09/08/20 09:22 Citalopram Hydrobromide 20 Mg Tablet P
--- NOTE | 2020-09-08 19:44 | PC.NURSE ---
dialysis called, patient done, 3 liters fluids removed, stated v/s stable
[2020-09-08] MEDS: ASPIRIN 81 MG ENTERIC TABLET PO (21:07)
[2020-09-08] MEDS: AMITRIPTYLINE HCL 25 MG TABLET 50 MG PO (21:07)
[2020-09-08] MEDS: PRAVASTATIN SODIUM 20 MG TABLET PO (21:07)
[2020-09-08] MEDS: MIRTAZAPINE 15 MG TABLET PO (21:07)
[2020-09-08 22:12] LABS: Glucose Point of Care 163 (65-105)
[2020-09-08] MEDS: ACETAMINOPHEN 325 MG TABLET 650 MG PO (22:13)
[2020-09-09] VITALS (9 sets, daily range): BP systolic 130–143; BP diastolic 48–59; PULSE 55–60; RESP 16–20; TEMP 36.6–36.7; O2SAT 96–100
[2020-09-09] MEDS: LEVOTHYROXINE SODIUM 50 MCG TABLET PO (06:03)
[2020-09-09] MEDS: INSULIN GLARGINE (*BKC) 100 UNITS/ML 10 UNITS SUB-Q (06:05)
[2020-09-09 06:26] LABS: Glucose Point of Care 148 (65-105)
[2020-09-09] MEDS: ACETAMINOPHEN 500 MG TABLET 1000 MG PO ×2 (08:46→12:34)
[2020-09-09] MEDS: SEVELAMER CARBONATE 800 MG TABLET PO ×3 (08:46→16:58)
[2020-09-09] MEDS: CITALOPRAM HYDROBROMIDE 20 MG TABLET 40 MG PO (08:47)
[2020-09-09] MEDS: carvediloL 25 MG TABLET PO ×2 (08:47→20:36)
[2020-09-09] MEDS: busPIRone HCL 10 MG TABLET PO ×2 (08:48→20:36)
[2020-09-09] MEDS: amLODIPine BESYLATE 5 MG TABLET 10 MG PO (08:48)
[2020-09-09] MEDS: ISOSORBIDE MONONITRATE 30 MG TAB.ER.24H PO (08:48)
[2020-09-09] MEDS: FLUTICASONE PROPIONATE 0.05% NA SPR 16 GM BTL (*BKC) 2 SPRAY NASAL (08:49)
[2020-09-09] MEDS: AMIODARONE HCL 200 MG TABLET PO (08:49)
[2020-09-09] MEDS: DONEPEZIL HCL 10 MG TABLET PO (08:50)
[2020-09-09] MEDS: LORATADINE 10 MG TABLET PO (08:50)
[2020-09-09] MEDS: LIDOCAINE 5% PATCH 2 PATCH TRANSDERM (08:51)
[2020-09-09] MEDS: PANTOPRAZOLE 40 MG TABLET PO (08:51)
[2020-09-09] MEDS: lisinopriL 20 MG TABLET PO (08:51)
[2020-09-09] MEDS: MONTELUKAST SODIUM 10 MG TABLET PO (08:51)
[2020-09-09] MEDS: VITAMIN B CMPLX/VIT C/FOLIC AC 1 CAPSULE 1 CAP PO (08:51)
--- NOTE | 2020-09-09 10:44 | WPDNEURORHBP ---
Subjective Date/time seen: 09/09/20 10:44 Interval history: Geni is resting comfortably in bed. Patient is complaining of seasonal allergies. Patient is taking Claritin daily. Patient feels prepared for discharge set for Sunday. Review of Systems Review of Systems: All systems reviewed & are unremarkable except as noted in HPI and below Functional Status Ambulation Ability Ability to Ambulate 10 Feet: Independent Ability to Ambulate 50 Feet With 2 Turns: Independent Ambulation Assistive Devices: Walker, Standard Exam Narrative: Exam Narrative: Head is normocephalic. Neck is supple. Speech is fluent. Patient has poor dentition. Heart rate rhythm is regular. Lungs are clear to auscultation. Bilateral upper extremity strength are 4/5. Left lower extremity strength is 4/5. Right hip strength reveals proximal weakness of 2 to 3/5 and distally 4/5 Objective Data Vital Signs Vital Signs: Vital Signs - 24 hr 09/08/20 14:00 09/08/20 15:27 09/08/20 15:38 Temperature 36.8 C 36.7 C Pulse Rate 60 58 L 58 L Respiratory Rate 20 18 Blood Pressure 141/56 H 139/69 135/67 Pulse Oximetry 100 09/08/20 15:45 09/08/20 16:00 09/08/20 16:15 Temperature Pulse Rate 56 L 58 L 58 L Respiratory Rate Blood Pressure 139/66 152/65 H 147/65 H Pulse Oximetry 09/08/20 16:30 09/08/20 16:45 09/08/20 17:00 Temperature Pulse Rate 59 L 57 L 57 L Respiratory Rate Blood Pressure 138/64 137/63 128/63 Pulse Oximetry 09/08/20 17:15 09/08/20 17:30 09/08/20 17:45 Temperature Pulse Rate 60 57 L 57 L Respiratory Rate Blood Pressure 137/69 128/65 127/65 Pulse Oximetry 09/08/20 18:00 09/08/20 18:15 09/08/20 18:30 Temperature Pulse Rate 56 L 56 L 56 L Respiratory Rate Blood Pressure 138/65 140/64 136/64 Pulse Oximetry 09/08/20 18:45 09/08/20 19:00 09/08/20 19:12 Temperature Pulse Rate 57 L 56 L 59 L Respiratory Rate Blood Pressure 140/66 143/67 H 141/73 H Pulse Oximetry 09/08/20 20:00 09/08/20 21:03 09/08/20 21:35 Temperature 36.8 C Pulse Rate 58 L 60 58 L Respiratory Rate 18 18 Blood Pressure 129/44 L Pulse Oximetry 95 95 09/09/20 05:11 09/09/20 08:47 09/09/20 08:49 Temperature 36.7 C Pulse Rate 55 L 60 60 Respiratory Rate 18 Blood Pressure 130/49 L Pulse Oximetry 97 Intake/Output Intake/Output: Intake & Output 09/06/20 09/07/20 09/08/20 09/09/20 23:59 23:59 23:59 23:59 Intake Total 720 720 600 240 Output Total 3000 3000 Balance 720 2280 -2400 240 Meds/Results Medications: Active Medications Generic Name Dose Route Start Last Admin Trade Name Freq PRN Reason Stop Dose Admin Acetaminophen 1,000 mg 09/02/20 08:00 09/09/20 08:46 Acetaminophen 500 Mg Tablet PO 1,000 mg 0800,1200 DERRICK Administration Acetaminophen 650 mg 09/01/20 13:46 09/08/20 22:13 Acetaminophen 325 Mg Tablet PO 650 mg Q6H PRN Administration Mild Pain (1-3) or Fever Hydrocodone Bitart/Acetaminophen 1 tab 09/05/20 09:37 Hydrocodone/Acetaminophen (*Crx) 5-325 Mg Tablet PO DAILY PRN Pain Rated 4-6 Amiodarone HCl 200 mg 09/01/20 09:00 09/09/20 08:49 Amiodarone Hcl 200 Mg Tablet PO 200 mg DAILY DERRICK Administration Amitriptyline HCl 50 mg 08/31/20 21:00 09/08/20 21:07 Amitriptyline Hcl 25 Mg Tablet PO 50 mg HS DERRICK Administration Amlodipine Besylate 10 mg 09/01/20 09:00 09/09/20 08:48 Amlodipine Besylate 5 Mg Tablet PO 10 mg DAILY DERRICK Administration Aspirin 81 mg 08/31/20 21:00 09/08/20 21:07 Aspirin 81 Mg Enteric Tablet PO 81 mg HS DERRICK Administration Buspirone HCl 10 mg 08/31/20 21:00 09/09/20 08:48 Buspirone Hcl 10 Mg Tablet PO 10 mg Q12HR DERRICK Administration Carvedilol 25 mg 08/31/20 21:00 09/09/20 08:47 Carvedilol 25 Mg Tablet PO 25 mg Q12HR DERRICK Administration Citalopram Hydrobromide 40 mg 09/03/20 09:00 09/09/20 08:47 Citalopram Hy
[2020-09-09 12:13] LABS: Glucose Point of Care 92 (65-105)
[2020-09-09 16:53] LABS: Glucose Point of Care 220 (65-105)
[2020-09-09] MEDS: INSULIN ASPART (*BKC) 100 UNITS/ML SUB-Q (16:58)
[2020-09-09] MEDS: rOPINIRole HCL 0.25 MG TABLET PO (17:01)
[2020-09-09] MEDS: ACETAMINOPHEN 325 MG TABLET 650 MG PO (17:06)
[2020-09-09] MEDS: MIRTAZAPINE 15 MG TABLET PO (20:36)
[2020-09-09] MEDS: AMITRIPTYLINE HCL 25 MG TABLET 50 MG PO (20:36)
[2020-09-09] MEDS: PRAVASTATIN SODIUM 20 MG TABLET PO (20:36)
[2020-09-09] MEDS: ASPIRIN 81 MG ENTERIC TABLET PO (20:36)
[2020-09-09] MEDS: HYDROcodone/acetaminophen (*CRX) 5-325 MG TABLET 1 TAB PO (20:40)
[2020-09-09 21:17] LABS: Glucose Point of Care 210 (65-105)
[2020-09-10] VITALS (24 sets, daily range): BP systolic 133–163; BP diastolic 46–72; PULSE 57–82; RESP 16–20; TEMP 35.8–37; O2SAT 90–99
[2020-09-10 06:09] LABS: Glucose Point of Care 182 (65-105)
[2020-09-10] MEDS: INSULIN GLARGINE (*BKC) 100 UNITS/ML 10 UNITS SUB-Q (06:09)
[2020-09-10] MEDS: LEVOTHYROXINE SODIUM 50 MCG TABLET PO (06:10)
[2020-09-10] MEDS: ACETAMINOPHEN 500 MG TABLET 1000 MG PO ×2 (08:33→12:43)
[2020-09-10] MEDS: SEVELAMER CARBONATE 800 MG TABLET PO ×3 (08:34→20:43)
[2020-09-10] MEDS: amLODIPine BESYLATE 5 MG TABLET 10 MG PO (08:35)
[2020-09-10] MEDS: CITALOPRAM HYDROBROMIDE 20 MG TABLET 40 MG PO (08:37)
[2020-09-10] MEDS: DONEPEZIL HCL 10 MG TABLET PO (08:38)
[2020-09-10] MEDS: carvediloL 25 MG TABLET PO ×2 (08:38→20:44)
[2020-09-10] MEDS: busPIRone HCL 10 MG TABLET PO ×2 (08:38→20:44)
[2020-09-10] MEDS: FLUTICASONE PROPIONATE 0.05% NA SPR 16 GM BTL (*BKC) 2 SPRAY NASAL (08:39)
[2020-09-10] MEDS: LIDOCAINE 5% PATCH 2 PATCH TRANSDERM (08:40)
[2020-09-10] MEDS: ISOSORBIDE MONONITRATE 30 MG TAB.ER.24H PO (08:40)
[2020-09-10] MEDS: lisinopriL 20 MG TABLET PO (08:41)
[2020-09-10] MEDS: LORATADINE 10 MG TABLET PO (08:41)
[2020-09-10] MEDS: MONTELUKAST SODIUM 10 MG TABLET PO (08:42)
[2020-09-10] MEDS: AMIODARONE HCL 200 MG TABLET PO (08:42)
[2020-09-10] MEDS: PANTOPRAZOLE 40 MG TABLET PO (08:43)
[2020-09-10] MEDS: VITAMIN B CMPLX/VIT C/FOLIC AC 1 CAPSULE 1 CAP PO (08:44)
[2020-09-10] MEDS: HYDROcodone/acetaminophen (*CRX) 5-325 MG TABLET 1 TAB PO ×2 (10:48→20:42)
[2020-09-10 11:52] LABS: Glucose Point of Care 194 (65-105)
--- NOTE | 2020-09-10 12:54 | WPDNEURORHBP ---
Subjective Date/time seen: 09/10/20 12:54 Interval history: Patient feels prepared for discharge set for Sunday. Patient is requesting [place] for home. Patient is aware that I will not provide a script for this medicine. Patient has made an appointment to see her pain doctor on Sunday. Patient is independent and pain does not limit her. Review of Systems Review of Systems: All systems reviewed & are unremarkable except as noted in HPI and below Functional Status Ambulation Ability Ability to Ambulate 10 Feet: Independent Ability to Ambulate 50 Feet With 2 Turns: Independent Ambulation Assistive Devices: Walker, Wheeled Transfers Ability Ability to Transfer In/Out of Chair: Independent Exam Narrative: Exam Narrative: Head is normocephalic. Neck is supple. Speech is fluent. Patient has poor dentition. Heart rate rhythm is regular. Lungs are clear to auscultation. Bilateral upper extremity strength are 4/5. Left lower extremity strength is 4/5. Right hip strength reveals proximal weakness of 2 to 3/5 and distally 4/5 Patient is independent Objective Data Vital Signs Vital Signs: Vital Signs - 24 hr 09/09/20 14:00 09/09/20 17:06 09/09/20 20:00 Temperature 36.7 C 36.7 C Pulse Rate 60 57 L Respiratory Rate 20 16 Blood Pressure 135/59 L Pulse Oximetry 100 96 09/09/20 20:36 09/09/20 22:00 09/10/20 05:04 Temperature 36.6 C 36.6 C Pulse Rate 60 57 L 65 Respiratory Rate 16 16 Blood Pressure 143/48 H 146/55 H Pulse Oximetry 96 99 09/10/20 08:00 09/10/20 08:38 09/10/20 08:42 Temperature Pulse Rate 65 65 65 Respiratory Rate 16 Blood Pressure Pulse Oximetry 99 Intake/Output Intake/Output: Intake & Output 09/07/20 09/08/20 09/09/20 09/10/20 23:59 23:59 23:59 23:59 Intake Total 720 600 720 240 Output Total 3000 3000 Balance -2280 -2400 720 240 Meds/Results Medications: Active Medications Generic Name Dose Route Start Last Admin Trade Name Freq PRN Reason Stop Dose Admin Acetaminophen 1,000 mg 09/02/20 08:00 09/10/20 12:43 Acetaminophen 500 Mg Tablet PO 1,000 mg 0800,1200 DERRICK Administration Acetaminophen 650 mg 09/01/20 13:46 09/09/20 17:06 Acetaminophen 325 Mg Tablet PO 650 mg Q6H PRN Administration Mild Pain (1-3) or Fever Hydrocodone Bitart/Acetaminophen 1 tab 09/05/20 09:37 09/10/20 10:48 Hydrocodone/Acetaminophen (*Crx) 5-325 Mg Tablet PO 1 tab DAILY PRN Administration Pain Rated 4-6 Amiodarone HCl 200 mg 09/01/20 09:00 09/10/20 08:42 Amiodarone Hcl 200 Mg Tablet PO 200 mg DAILY DERRICK Administration Amitriptyline HCl 50 mg 08/31/20 21:00 09/09/20 20:36 Amitriptyline Hcl 25 Mg Tablet PO 50 mg HS DERRICK Administration Amlodipine Besylate 10 mg 09/01/20 09:00 09/10/20 08:35 Amlodipine Besylate 5 Mg Tablet PO 10 mg DAILY DERRICK Administration Aspirin 81 mg 08/31/20 21:00 09/09/20 20:36 Aspirin 81 Mg Enteric Tablet PO 81 mg HS DERRICK Administration Buspirone HCl 10 mg 08/31/20 21:00 09/10/20 08:38 Buspirone Hcl 10 Mg Tablet PO 10 mg Q12HR DERRICK Administration Carvedilol 25 mg 08/31/20 21:00 09/10/20 08:38 Carvedilol 25 Mg Tablet PO 25 mg Q12HR DERRICK Administration Citalopram Hydrobromide 40 mg 09/03/20 09:00 09/10/20 08:37 Citalopram Hydrobromide 20 Mg Tablet PO 40 mg DAILY DERRICK Administration Dextrose 12.5 gm 08/31/20 16:31 Dextrose 50% 25 Gm/50 Ml Syringe IV PUSH PRN PRN Hypoglycemia Protocol Donepezil HCl 10 mg 09/01/20 09:00 09/10/20 08:38 Donepezil Hcl 10 Mg Tablet PO 10 mg DAILY DERRICK Administration Epoetin Conor-epbx 10,000 units 09/06/20 18:00 09/07/20 10:03 Epoetin Conor-Epbx 10,000 Units/Ml Vial IV PUSH 10,000 units [id number] DERRICK Administration Ergocalciferol 50,000 unit 09/02/20 09:00 09/02/20 07:55 Ergocalciferol 50,000 Unit Capsule PO 50,000 unit MONTHLY DERRICK Administration Fluticasone
--- NOTE | 2020-09-10 13:54 | PM.PNNEP ---
Progress Note: A&P Assessment and Plan (1) End stage renal disease: Code(s): N18.6 - End stage renal disease Status: Chronic Assessment and Plan: HD will happen this afternoon. Swelling is much better. Will take a little more fluid off today (2) Fracture of left pelvis: Code(s): S32.9XXA - Fracture of unspecified parts of lumbosacral spine and pelvis, initial encounter for closed fracture Status: Acute Assessment and Plan: non-operative management pain control With Tylenol PT/OT as tolerated (3) Hypertension: Code(s): I10 - Essential (primary) hypertension Status: Chronic Assessment and Plan: systolic 129-146 this should improve with fluid removal (4) Anemia: Code(s): D64.9 - Anemia, unspecified Status: Chronic Assessment and Plan: in range/at goal for ESRD adequate iron stores by anemia studies Epogen with HD hemoglobin 9.5 (5) Renal osteodystrophy: Code(s): N25.0 - Renal osteodystrophy Status: Chronic Assessment and Plan: calcium and phosphorus are okay (6) Debility: Code(s): R53.81 - Other malaise Status: Acute Assessment and Plan: PT/OT/rehab as tolerated Subjective Date/time seen: 09/10/20 13:54 Interval history: Geni is feeling about the same. sitting up in a chair. She is eager for discharge tomorrow. She is due for dialysis today. Review of Systems Cardiovascular: Cardiovascular: Reports no additional cardiovascular complaints Respiratory: Respiratory: Reports no additional respiratory complaints Gastrointestinal: Gastrointestinal: Reports no additional gastrointestinal complaints Genitourinary: Genitourinary: Reports no additional female genitourinary complaints Exam Narrative: Exam Narrative: General: WD/WN female in NAD Heart: normal S1 and S2; no rub Or gallop Lungs: clear Abdomen: soft, nontender, nondistended, positive bowel sounds Extremities: no cyanosis or clubbing; trace edema on the right and 1+ on the left Skin: No rash Or subcu nodules Objective Data Vital Signs Vital Signs: Vital Signs - 24 hr 09/09/20 14:00 09/09/20 17:06 09/09/20 20:00 Temperature 36.7 C 36.7 C Pulse Rate 60 57 L Respiratory Rate 20 16 Blood Pressure 135/59 L Pulse Oximetry 100 96 09/09/20 20:36 09/09/20 22:00 09/10/20 05:04 Temperature 36.6 C 36.6 C Pulse Rate 60 57 L 65 Respiratory Rate 16 16 Blood Pressure 143/48 H 146/55 H Pulse Oximetry 96 99 09/10/20 08:00 09/10/20 08:38 09/10/20 08:42 Temperature Pulse Rate 65 65 65 Respiratory Rate 16 Blood Pressure Pulse Oximetry 99 Intake/Output Intake/Output: Intake & Output 09/07/20 09/08/20 09/09/20 09/10/20 23:59 23:59 23:59 23:59 Intake Total 720 600 720 240 Output Total 3000 3000 Balance -2280 -2400 720 240 Meds/Results Medications: Active Medications Generic Name Dose Route Start Last Admin Trade Name Freq PRN Reason Stop Dose Admin Acetaminophen 1,000 mg 09/02/20 08:00 09/10/20 12:43 Acetaminophen 500 Mg Tablet PO 1,000 mg 0800,1200 DERRICK Administration Acetaminophen 650 mg 09/01/20 13:46 09/09/20 17:06 Acetaminophen 325 Mg Tablet PO 650 mg Q6H PRN Administration Mild Pain (1-3) or Fever Hydrocodone Bitart/Acetaminophen 1 tab 09/05/20 09:37 09/10/20 10:48 Hydrocodone/Acetaminophen (*Crx) 5-325 Mg Tablet PO 1 tab DAILY PRN Administration Pain Rated 4-6 Amiodarone HCl 200 mg 09/01/20 09:00 09/10/20 08:42 Amiodarone Hcl 200 Mg Tablet PO 200 mg DAILY DERRICK Administration Amitriptyline HCl 50 mg 08/31/20 21:00 09/09/20 20:36 Amitriptyline Hcl 25 Mg Tablet PO 50 mg HS DERRICK Administration Amlodipine Besylate 10 mg 09/01/20 09:00 09/10/20 08:35 Amlodipine Besylate 5 Mg Tablet PO 10 mg DAILY DERRICK Administration Aspirin 81 mg 08/31/20 21:00
[2020-09-10] MEDS: EPOETIN ALFA-EPBX 10,000 UNITS/ML VIAL 10000 UNITS IV PUSH (18:41)
--- NOTE | 2020-09-10 18:56 | PC.NURSE ---
Patient transferred to dialysis at 1600
[2020-09-10 20:41] LABS: Glucose Point of Care 149 (65-105)
[2020-09-10] MEDS: ASPIRIN 81 MG ENTERIC TABLET PO (20:43)
[2020-09-10] MEDS: AMITRIPTYLINE HCL 25 MG TABLET 50 MG PO (20:43)
[2020-09-10] MEDS: PRAVASTATIN SODIUM 20 MG TABLET PO (20:44)
[2020-09-10] MEDS: rOPINIRole HCL 0.25 MG TABLET PO (20:44)
[2020-09-10] MEDS: MIRTAZAPINE 15 MG TABLET PO (20:44)
[2020-09-11 04:55] VITALS: BP 156/70; PULSE 70; RESP 18; TEMP 36.3; O2SAT 100
[2020-09-11] MEDS: INSULIN GLARGINE (*BKC) 100 UNITS/ML 10 UNITS SUB-Q (06:13)
[2020-09-11] MEDS: LEVOTHYROXINE SODIUM 50 MCG TABLET PO (06:14)
[2020-09-11 07:09] LABS: Glucose Point of Care 160 (65-105)
[2020-09-11] MEDS: SEVELAMER CARBONATE 800 MG TABLET PO (08:43)
[2020-09-11 08:44] VITALS: PULSE 70
[2020-09-11] MEDS: CITALOPRAM HYDROBROMIDE 20 MG TABLET 40 MG PO (08:44)
[2020-09-11] MEDS: busPIRone HCL 10 MG TABLET PO (08:44)
[2020-09-11] MEDS: AMIODARONE HCL 200 MG TABLET PO (08:44)
[2020-09-11] MEDS: amLODIPine BESYLATE 5 MG TABLET 10 MG PO (08:44)
[2020-09-11 08:45] VITALS: PULSE 70
[2020-09-11] MEDS: DONEPEZIL HCL 10 MG TABLET PO (08:45)
[2020-09-11] MEDS: carvediloL 25 MG TABLET PO (08:45)
[2020-09-11] MEDS: FLUTICASONE PROPIONATE 0.05% NA SPR 16 GM BTL (*BKC) 2 SPRAY NASAL (08:45)
[2020-09-11] MEDS: lisinopriL 20 MG TABLET PO (08:46)
[2020-09-11] MEDS: LORATADINE 10 MG TABLET PO (08:46)
[2020-09-11] MEDS: LIDOCAINE 5% PATCH 2 PATCH TRANSDERM (08:46)
[2020-09-11] MEDS: ISOSORBIDE MONONITRATE 30 MG TAB.ER.24H PO (08:46)
[2020-09-11] MEDS: MONTELUKAST SODIUM 10 MG TABLET PO (08:47)
[2020-09-11] MEDS: VITAMIN B CMPLX/VIT C/FOLIC AC 1 CAPSULE 1 CAP PO (08:47)
[2020-09-11] MEDS: PANTOPRAZOLE 40 MG TABLET PO (08:47)
[2020-09-11] MEDS: HYDROcodone/acetaminophen (*CRX) 5-325 MG TABLET 1 TAB PO (08:48)
--- NOTE | 2020-09-11 09:43 | PM.DS ---
DS: Admitting Diagnosis Admitting Diagnosis Admitting Diagnosis: pelvic fracture DS: Discharge Diagnosis Discharge Diagnosis (1) Fracture of left pelvis: Code(s): S32.9XXA - Fracture of unspecified parts of lumbosacral spine and pelvis, initial encounter for closed fracture Status: Acute Assessment and Plan: PT OT (2) Atrial fibrillation: Code(s): I48.91 - Unspecified atrial fibrillation Status: Acute Assessment and Plan: patient is taking amiodarone 200 mg daily, patient is on aspirin (3) Type 2 diabetes mellitus: Code(s): E11.9 - Type 2 diabetes mellitus without complications Status: Acute Assessment and Plan: Lantus 10 units subcu daily (4) Hemodialysis patient: Code(s): Z99.2 - Dependence on renal dialysis Status: Acute (5) Asthma: Code(s): J45.909 - Unspecified asthma, uncomplicated Status: Acute (6) Back pain: Code(s): M54.9 - Dorsalgia, unspecified Status: Acute Assessment and Plan: Chronic with longstanding [place] use. Examiner will not continue [place] except for the occasional breakthrough pain for a few more days then discontinue. Patient is on Tylenol and able to perform all activities. 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, unspecified Status: Acute (10) Hypertension: Code(s): I10 - Essential (primary) hypertension Status: Chronic (11) GERD (gastroesophageal reflux disease): Code(s): K21.9 - Gastro-esophageal reflux disease without esophagitis Status: Acute DS: Summary Hospital Course Hospital Course: The etiologic diagnosis is nondisplaced left inferior pubic ramus fracture I saw this patient [id number] on 08/31/2020 thru 09/11/20 The patient is a 74-year-old obese female with past medical history of type 2 diabetes, hypertension, atrial fib on aspirin, and end-stage renal disease with hemodialysis Sunday presented to [facility] on 08/28/2020 for evaluation of left hip and pelvic pain after experiencing a fall 2 days prior. Patient was initially seen on 08/26/2020 at [facility] emergency department and found to have a pelvic fracture. The patient deferred admittance and was discharged home. She continued to have pain and was re-evaluated at [facility] on 08/29/2019. Imaging showed healing complete nondisplaced fracture through the midportion left inferior pubic rami. Orthopedic consult was requested and recommended nonsurgical intervention. The patient is weight-bearing as tolerated through the left lower extremity. The injury is stable and physician recommends air you for continued functional progress. No further follow-up for repeat radiographs are indicated for this type of fracture. The patient experienced medical complications of hypertension, hypo in a tree me a, hyperglycemia, hypercalcemia, anemia, and acute persistent pain. The patient will not discharge to [facility] acute rehab on DVT prophylaxis. REHAB HOSPITAL COURSE PATIENT HAS REMAINED MEDICALLY STABLE WHILE RECEIVING HEMODIALYSIS 3 TIMES A WEEK WHILE ON THE ACUTE REHAB FACILITY. PATIENT HAS A POTENTIAL FOR OPIOID ABUSE AND ALL OPIOIDS WERE STOPPED. PATIENT'S PAIN WAS CONTROLLED WITH TYLENOL. PATIENT WAS ABLE TO PERFORM ALL ACTIVITIES. I HAVE STRONGLY RECOMMENDED THE PATIENT TO NOT CONTINUE ON [place] IN THE FUTURE. PATIENT IS AWARE OF MY CONCERNS. PATIENT PROGRESSED WELL WITH PHYSICAL THERAPY AND WAS ESSENTIALLY MODIFIED INDEPENDENT WITH ALL ACTIVITIES OF DAILY LIVING TRANSFERS AND GAIT. DISTANCE WAS LIMITED DUE TO PELVIC PAIN AND CHRONIC BACK PAIN. DR BARRIOS'S OFFICE WAS CONTACTED ON 09/13/20 TO DISCUSS [place] ADMINISTRA
== END 2020-09-11 09:00 | disposition home health service (06) | DRG 559 ==
PROVIDERS: Internal Medicine Nephrology; Admitting Provider Physical Medicine & Rehabilitation; Visit Provider Physical Medicine & Rehabilitation
DX: S32.592D Other specified fracture of left pubis, subsequent encounter for fracture with routine healing (principal); N18.6 End stage renal disease; I13.2 Hypertensive heart and chronic kidney disease with heart failure and with stage 5 chronic kidney disease, or end stage renal disease; W19.XXXD Unspecified fall, subsequent encounter; E11.22 Type 2 diabetes mellitus with diabetic chronic kidney disease; E66.9 Obesity, unspecified; E11.65 Type 2 diabetes mellitus with hyperglycemia; E78.5 Hyperlipidemia, unspecified; I48.91 Unspecified atrial fibrillation; I50.9 Heart failure, unspecified; K21.9 Gastro-esophageal reflux disease without esophagitis; M79.89 Other specified soft tissue disorders; N25.0 Renal osteodystrophy; R53.81 Other malaise; Z79.82 Long term (current) use of aspirin; Z99.2 Dependence on renal dialysis; Z68.33 Body mass index [BMI] 33.0-33.9, adult; Z79.4 Long term (current) use of insulin
CPT/HCPCS: 36415; 80053; 80074; 82306; 82728; 82948; 83540; 83550; 83970; 84100; 85025; 85055; 86706; 93970; 97110; 97116; 97161; 97165; 97530; 97535; 97542; A9270; G0257; J1815; J7030; Q5106